=== PATIENT | male | born 1960 | race Caucasian/White ===

== ENCOUNTER 2024-06-07 09:26 | Outpatient (AMB) | payer OTHER, SELFPAY ==
--- NOTE | 2024-06-07 09:30 | MHC.PC.OV ---
Vital Signs 06/07/24 09:43 Height 5 ft 11 in Weight 195 lb BMI 27.2 BP 124/80 Blood Pressure Location Rt brachial Position Sitting Pulse 48 L Pulse Source Pulse Oximeter Pulse Oximetry (%) 98 Oxygen Delivery Method Room Air Intake Visit Reasons: SOCK LINER // Establish Care Intake Note: New patient visit. Umbilical hernia for 2 years. Fish Bailer Required: No Accompanied by: Spouse Allergies meperidine [From Demerol] Allergy (Unknown, Verified 06/07/24 09:35) stomach issue Tobacco use date assessed: 06/07/24 Fall risk assessment: No Falls in past year Last assessed Fall Risk: 06/07/24 Dental Screening Dental Screen Date: 06/07/24 Did you have a dental visit in the last 12 months?: Yes Did you have a dental problem in the last 6 months where you did not have access to dental care?: No Was dental information given to patient?: Patient has dentist HPI HPI Comments History of Present Illness Details The patient is a 64 year old male with a past medical history of hypertension, hyperlipidemia, hyperglycemia, OA, colon polyps, elevated LFTs presenting to [facility]. Transfer from [facility] CV: On irbesartan, amlodipine. Denies chest pain, exertional dyspnea, LE edema Endocrine: Hyperglycemia. History of adrenal hyperplasia on CT which was done for a mass/lump in the left abdomen that he has had for the past few months. It started when he was doing parallel bars in gymnastics. Says they noticed bruising at one point Urologic: Follows with [facility] urology. History of kidney stones. History of hematuria Allergies/asthma: On claritin, prn albuterol Colonoscopy 2020-Follow up July per patient ROS see HPI PHYSICAL EXAM: GENERAL: Alert and oriented x 3. NAD EYES: EOMI. Anicteric. HENT: Moist mucous membranes. No scleral icterus. No cervical lymphadenopathy. LUNGS: Clear to auscultation bilaterally. CARDIOVASCULAR: Regular rate and rhythm. No murmur. No JVD. ABDOMEN: Soft, non-tender. There is a mass/bulging over the left transverse abdominus muscles EXTREMITIES: No edema. Non-tender. SKIN: No rashes or lesions. Warm. NEUROLOGIC: No focal neurological deficits. CN II-XII grossly intact PSYCHIATRIC: Cooperative. 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 1. Little interest or pleasure in doing things: not at all 2. Feeling down, depressed, or hopeless: not at all 3. Trouble falling or staying asleep, or sleeping too much: not at all 4. Feeling tired or having little energy: not at all 5. Poor appetite or overeating: not at all 6. Feeling bad about yourself - or that you are a failure or have let yourself or your family down: not at all 7. Trouble concentrating on things, such as reading the newspaper or watching television: not at all 8. Moving or speaking so slowly that other people could have noticed. Or the opposite - being so fidgety or restless that you have been moving around a lot more than usual: not at all 9. Thoughts that you would be better off or of hurting yourself in some way: not at all Total score: 0 Depression Screening Interpretation: Negative Depression Screening Done: Yes 37120 - PHQ-9 Billing: Yes Source: Developed by Drs. Theodore Jordan, Cheryl Duval, Tristan Kaur and colleagues, with an educational elena from [employer]. Thrive Questionnaire Date Thrive assessed: 05/31/24 I am a: Patient What is your living situation today?: I have a steady place to live Within the past 12 months, did the food you bought not last and you didn't have the money to get more?: Never true Within the past 12 months, did you worry whether your food would run out before you got money to buy more?: Never true Do you have trouble paying for medicines?: No Do you have trouble getting transportation to medical appointments?: No Do you have trouble paying your heating and electricity bill?: No Do you have trouble taking care of your child, family member or friend?: No Do you have trouble with day-to-day activities such as bathing, preparing meals, shopping, managing finances, etc.?: No Are you currently unemployed and looking for a job?: No Are you interested in more education?: No Please select the resources that you would like help with: None Currently or been in a relationship where the following occur: No concerns reported THRIVE Score: 0 AUDIT C Alcohol Use Questionnaire (AUDIT-C) 1. How often do you have a drink containing alcohol?: Monthly or less 2. How many drinks containing alcohol do you have on a typical day when you are drinking?: 1 or 2 3. How often do you have six or more drinks on one occasion?: Never Total Score: 1 DANAY-7 AMB Questionnaire DANAY-7 Feeling nervous, anxious, or on edge: 0 = Not at all Not being able to stop or control worryin = Not at all Worrying too much about different things: 0 = Not at all Trouble relaxin = Not at all Being so restless that it is hard to sit still: 0 = Not at all Becoming easily annoyed or irritable: 0 = Not at all Feeling afraid as if something awful might happen: 0 = Not at all Total DANAY-7 score (0-4 normal; 5-9 mild; 10-14 moderate; 15-21 severe): 0 Source: Developed by Drs. Theodore Jordan, Cheryl Duval, Tristan Kaur and colleagues, with an educational elena from [employer]. Physical exam (Primary Care) Vital Signs: Last Vital Signs Pulse 48 L 06/07/24 09:43 BP 124/80 06/07/24 09:43 Pulse Ox 98 06/07/24 09:43 Oxygen Delivery Method Room Air 06/07/24 09:43 BMI result Body Mass Index 27.2 Tobacco/Smoking Status: Tobacco use Status Tobacco use date assessed 06/07/24 06/07/24 09:45 Patient Tobacco Use Status Former Tobacco user 06/07/24 09:45 e-Cigarette/Vaping Use Never Used 06/07/24 09:45 PHQ-9: PHQ-9 Score PHQ-9: Total score 0 06/07/24 09:32 Depression Screening Interpretation: Negative Thrive Assessment: Date of Thrive Assessment Date Thrive assessed 05/31/24 06/07/24 09:32 Currently or been in a relationship where the following occur: No concerns reported Coding Level of Care Code New Pt Level 4 (81618) Complex EM visit Add On G2211 Diagnoses Encounter to establish care Z76.89 Abdominal mass of other site R19.09 Abdominal location: other location Adrenal hyperplasia E27.8 Additional Codes PHQ-9 - 35769 - PHQ-9 Billing: Yes ([id number]) Assessment & Plan Assessment & Plan (1) Encounter to establish care: Code(s): Z76.89 - Persons encountering health services in other specified circumstances Category: Medical Plan: 64 year old to establish care. past medical, surgical, social and family history reviewed (2) Abdominal mass: Code(s): R19.00 - Intra-abdominal and pelvic swelling, mass and lump, unspecified site Category: Medical Qualifiers: Abdominal location: other location Qualified Code(s): R19.09 - Other intra-abdominal and pelvic swelling, mass and lump Plan: Left lateral mid/lower abdominal bulging/mass CT reviewed. No findings to explain. Ultrasound ordered. Refer general surgery. More consistent with lipoma on exam (3) Adrenal hyperplasia: Code(s): E27.8 - Other specified disorders of adrenal gland Category: Medical Plan: refer endocrinology for evaluation Orders: Orders Comprehensive Met. Panel Today M79.89 - Other specified soft tissue disorders, R73.9 - Hyperglycemia, unspecified US abdomen limited Today M79.89 - Other specified soft tissue disorders, R19.00 - Intra-abdominal and pelvic swelling, mass and lump, unspecified site Hemoglobin A1c Today M79.89 - Other specified soft tissue disorders, R73.9 - Hyperglycemia, unspecified Referrals General Surgery Referral R19.00 - Intra-abdominal and pelvic swelling, mass and lump, unspecified site Endocrinology Referral E27.8 - Other specified disorders of adrenal gland
[2024-06-07 09:43] VITALS: BP 124/80; PULSE 48; O2SAT 98; BMI 27.2
--- OUTSIDE RECORDS SUMMARY | 2024-06-07 09:56 | XMS_ITS | Clinical Summary ---
Author Organization [facility] Address [address] [place] [phone] Phone Care Team Providers Care Training And Development Project Leader Name Role Phone Danielle Correa MD Primary Care Provider Allergies Active Allergy Reactions Criticality Noted Date Comments Meperidine Hcl Nausea And Vomiting 06/05/2006 Medications Medication Sig Dispensed Refills Start Date End Date Status albuterol HFA (PROAIR HFA ; PROVENTIL HFA ; VENTOLIN HFA) 90 mcg/actuation inhaler Inhale 2 Puffs into the lungs 4 times daily as needed for Cough or Wheezing. 04/01/2018 Active amLODIPine (NORVASC) 10 mg tablet Take 1 tablet (10 mg total) by mouth 1 (one) time each day. 12/29/2023 Active ascorbic acid (VITAMIN C) 1,000 mg tablet Take 1,000 mg by mouth daily. Active EPINEPHrine (EpiPen 2-Jaleel) 0.3 mg/0.3 mL injection Inject 1 Tube as directed Once. For severe reaction to bee sting. 10/21/2022 Active loratadine (CLARITIN) 10 mg tablet Take 1 tablet (10 mg total) by mouth 1 (one) time each day. 06/12/2022 Active multivit-mins/iron /folic/lycop (CENTRUM ULTRA MEN'S ORAL) Take by mouth daily. Active reservoir inhalation (INSPIREASE) device Use as directed 04/01/2018 Active fluticasone propionate (FLONASE) 50 mcg/actuation nasal sprayIndications:A llergic rhinitis due to pollen SPRAY 2 SPRAYS INTO EACH NOSTRIL EVERY DAY 48 mL 1 05/05/2024 Active irbesartan (AVAPRO) 150 mg tabletIndications: Essential (primary) hypertension TAKE 1 TABLET BY MOUTH EVERY DAY 90 tablet 05/27/2024 Active tamsulosin (FLOMAX) 0.4 mg 24 hr capsuleIndications :Urgency of urination TAKE 1 CAPSULE BY MOUTH DAILY. TAKE 30 MINS AFTER SAME MEAL EVERY DAY. 90 capsule 05/31/2024 Active irbesartan (AVAPRO) 150 mg tablet Take 1 tablet (150 mg total) by mouth 1 (one) time each day. 10/23/2023 5 Discontinued tamsulosin (FLOMAX) 0.4 mg 24 hr capsule Take 1 Capsule by mouth daily. Take 30 mins after same meal every day. 02/02/2024 5 Discontinued Active Problems Problem Noted Date Diagnosed Date Abdominal wall pain 07/28/2023 Abnormal LFTs 06/13/2019 Primary osteoarthritis involving multiple joints 01/29/2015 Internal hemorrhoids 03/19/2009 Overview (02/19/2024): Incidental finding on colonoscopy 03/12 Hyperglycemia 12/07/2008 Mixed hyperlipidemia 12/07/2008 Overview (02/19/2024): Ascvd 10.5% Osteoarthritis of hip 02/04/2008 Overview (02/19/2024): IMO update Essential hypertension, benign 07/10/2006 Encounters Date Type Department Care Team Description 03/28/2024 Nurse Triage Adult Medicine [address] [phone] Danielle Correa MD 03/28/2024 Telephone Adult Medicine [address] [phone] Danielle Correa MD 03/21/2024 Lab Requisition [facility] - Main Lab [address] [facility] [place] [address] Uri Amanda MD Benign essential microscopic hematuria; Hematuria, unspecified from Last 3 Months Immunizations Name Administration Dates Next Due Influenza Quadravalent, MDCK , 0.5ml, preservative free (Flucelvax) 6mo and older 01/14/2021 Influenza trivalent, 0.5mL, preservative free (Fluarix; FluLaval; Fluzone) ages 6mo and older (Afluria) 3 years and older 02/02/2023,02/06/2020,01/27/2019,2017,01/19/2017,01/07/2015,01/27/2014,1 ,01/30/2012,02/28/2011, 010,01/25/2009,02/25/2008,02/26/2007 Influenza, Unspecified 01/25/2024,02/12/2022,04/2021 Pfizer SARS-CoV-2 COVID-19, mRNA, LNP-S, preservative free 01/24/2022,08/05/2021,03/18/2021,2020 Pneumococcal conjugate 20 va lent (Prevnar 20, PCV 20) 2mo and older 07/28/2023 Td Tetanus diptheria (Tdvax) 7yo and older 12/22/2018,05/04/1998 Tdap Tetanus diptheria acell ular pertussis (Boostrix; Adacel) 7yo and older 03/23/2009 Zoster recombinant (Shingrix ) 19yo and older 05/10/2019,02/02/2019 Surgical History Surgery Date Site/Laterality Comments APPENDECTOMY PROCEDURE: VT APPENDECTOMY FOOT SURGERY PROCEDURE: VT UNLISTED PROCEDURE FOOT/TOES; COMMENT: left COLONOSCOPY 03/13/2009 PROCEDURE: HISTORICAL COLONOSCOPY; COMMENT: negDr Joel COLONOSCOPY 09/20/2020 PROCEDURE: HISTORICAL COLONOSCOPY; COMMENT: tubular adenoma Medical History Medical History Date Comments Mixed hyperlipidemia DX:Mixed hy perlipidemia Other abnormal glucose DX:Other abnormal glucose Osteoarthrosis, unspecified whether generalized or localized, pelvic region and thigh DX:Osteoarthrosis, unspecifi ed whether generalized or localized, pelvic region and thigh Essential hypertension, benign D X:Essential hypertension, benign History of colon polyps 09/26/2020 DX:Histo ry of colon polyps Family History Medical History Relation Name Comments Lung cancer Father Other cancer Father esophagus, Other: valve replac Mother pacemake r Relation Name Status Comments Brother AIDs Daughter Alive 2 Father lung cancer, pn eumonia, esophageal cancer, aortic aneurism, Maternal Grandfather mi Maternal Grandmother (Age 74) le ukemia Mother Alive Paternal Grandfather (Age 69) lesley ng disease Paternal Grandmother (Age 96) cv a Social History Tobacco Use Types Packs/Day Years Used Date Smoking Tobacco: Former Cigarettes Q uit: 05/04/1988 Smokeless Tobacco: Never Alcohol Use Standard Drinks/Week Comments Yes 0 (1 standard drink = 0.6 oz pur e alcohol) Housing Instability Answer Date Recorde d Are you worried that in the next 2 months you may not have stable housing? No 03/30/2024 Food Access & Nutrition Answer Date Rec orded Do you have access to a vari ety of food including fruits and vegetables? Yes 03/30/2024 Access to Healthcare Answer Date Record ed Within the last 3 months, sonam king many times did you visit the emergency department for your medical care? 1 03/30/2024 Health Literacy Answer Date Recorded How often do you need to hav e someone help you when you read instructions, pamphlets, or other written material from your doctor or pharmacy? Never 03/30/2024 Caregiver: How often do you need to have someone help you when you read instructions, pamphlets, or other written material from your doctor or pharmacy? Not on file 03/30/2024 Financial Risk Answer Date Recorded How hard is it for you to pa y for the very basics like food, housing, medical care, and air conditioning / heating? Not very hard 03/30/2024 Transportation Answer Date Recorded Has the lack of transportati on kept you from meetings, work, or from getting things needed for daily living? No Has the lack of transportati on kept you from medical appointments or from getting medications? No 03/30/2024 Social Isolation Answer Date Recorded How often do you feel lonely or isolated from th ose around you? Never 03/30/2024 Food Risk Answer Date Recorded Within the past 12 months we worried whether our food would run out before we got money to buy more. Never true 03/30/2024 Within the past 12 months th e food we bought just didn't last and we didn't have money to get more. Never true 03/30/2024 Dependent Care Answer Date Recorded Do you need help finding or paying for care for your loved ones. For example, early childhood teacher assistant or elderly care for an older adult? No 03/30/2024 Education Answer Date Recorded Do you think completing more education or training, like finishing a GED, going to college, or learning a trade, would be helpful for you? N/A 03/30/2024 Employment and Income Answer Date Recor ded During the last four weeks, have you been actively looking for work? No 03/30/2024 Living Situation Answer Date Recorded What is your living situation? 1 05/30/2023 Sex and Gender Information Value Date Recorded Sex Assigned at Not on file Gender Identity Not on file Sexual Orientation Not on file Job Start Date Occupation Industry Not on file Not on file Not on file Obstetrics History Last Filed Vital Signs Vital Sign Reading Time Taken Comments Blood Pressure 124/70 10/23/2023 9:06 AM EDT Pulse 64 10/23/2023 9:06 AM EDT Temperature - - Respiratory Rate - - Oxygen Saturation - - Inhaled Oxygen Concentration - - Weight 87.5 kg (192 lb 12.8 oz) 10/23/2023 9:06 AM EDT Height 181.6 cm (5' 11.5 ) 10/23/2023 9:06 AM ED T Body Mass Index 26.52 10/23/2023 9:06 AM EDT Plan of Treatment Upcoming Encounters Date Type Department Care Team (Late st Contact Info) Description 06/08/2024 9:45 AM EST Office Visit [place] [facility] [address] [place] [address] Danielle Correa MD [address] [place] [address] Health Maintenance Due Date Last Done Comments Abdominal Aortic Aneurysm (AAA) Screen 04/12/2022 Medicare Annual Wellness Visit 04/12/2022 COVID-19 Vaccine ( season) 2024 02/02/2023, 01/24/2022, 08/05/2021, Additional history exists Hypertension/CHF/CAD Annual BMP Blood Test 07/28/2024 07/29/2023 Depression Screening 03/30/2025 03/30/2024, 10/23/19 Social Influencers of Health Screening 03/30/2025 03/30/2024 Falls Risk Assessment 04/06/2025 04/06/2024 Colorectal Cancer Screening: Colonoscopy 09/20/2025 09/20/2020 Cholesterol Screening (Lipid Panel) 10/22/2027 10/21/2022 DTaP,Tdap,and Td Vaccines (4 - Td or Tdap) 12/22/2028 12/22/2018, 03/23/2009, 05/04/1998 RSV Immunization Patients 60+ Years Old (1 - 1-dose 75+ series) 2033 Hepatitis C Screening Completed 04/23/2012 Zoster Vaccines Completed 05/10/2019, 02/02/2019 Pneumococcal Vaccine: 65+ Years Completed 07/28/2023 Influenza Vaccine Completed 01/25/2024, , 02/12/2022, Additional history exists HIB Vaccines Aged Out No longer eligi ble based on patient's age to complete this topic HPV Vaccines Aged Out No longer eligi ble based on patient's age to complete this topic Hepatitis A Vaccines Aged Out No long er eligible based on patient's age to complete this topic Hepatitis B Vaccines Aged Out No long er eligible based on patient's age to complete this topic IPV Vaccines Aged Out No longer eligi ble based on patient's age to complete this topic MMR Vaccines Aged Out No longer eligi ble based on patient's age to complete this topic Meningococcal ACWY Vaccine Aged Out N o longer eligible based on patient's age to complete this topic RSV Immunization Patients Under 20 months Aged Out No longer eligible based on patient's age to complete this topic Varicella Vaccines Aged Out No longer eligible based on patient's age to complete this topic Procedures Procedure Name Priority Date/Time Associated Diagnosis Comments AP OUTSIDE CONSULT Routine 03/16/2024 12 :00 AM EST Benign essential microscopic hematuria Hematuria, unspecified DEPRESSION SCREENING Routine 10/23/2023 ANNUAL BMP BLOOD TEST Routine 07/29/2023 LIPID PANEL Routine 10/21/2022 COLONOSCOPY Routine 09/20/2020 HEPATITIS C SCREENING Routine 04/23/2012 from Last 3 Months or Most Recently Relevant to Health Maintenance Results * Anatomic pathology outside consult (03/16/2024 12:00 AM EST) Final Diagnosis Urine, Voided (cystoscope): Negative for high grade urothelial carcinoma. Acute inflammation present. 03/30/2024 4:23 PM EST [facility] Gross Description A. Urine, Voided, : [id number] Recd 1 TP cyto 03/30/2024 4:23 PM EST [facility] Disclaimer Unless otherwise specified, all tissue is 10% NB formalin fixed and paraffin embedded. 03/30/2024 4:23 PM EST [facility] Tissue Urine specimen from urethra / Unknown 03/16/2024 03/21/2024 11:15 AM EST Uri Amanda MD LAB PATHOLOGY ORDER [facility] [address] [place] [address], * Depression Screening (10/23/2023) Depression Screening abstracted Historical Provider MD SAE WALTERS E * Annual BMP Blood Test (07/29/2023) Pathologist [facility] Annual BMP Blood Test abstracted Historical Provider MD SAE WALTERS E * (ABNORMAL) Lipid panel (10/21/2022) Pathologist [facility] LDL/HDL Ratio 4 0 - 4 Triglycerides 156(A) 0 - 150 mg/dL Cholesterol 180 0 - 200 mg/dL HDL 51 40 mg/dL LDL Cholesterol 98 0 - 100 mg/dL Blood Venous blood specimen / Unknown Historical Provider LAB BLOOD ORDERAB LES * Colonoscopy (09/20/2020) Colonoscopy no interpreta tion,abstr acted Anatomical Region Laterality Modality Other Historical Provider MD SAE WALTERS E * Hepatitis C Screening (04/23/2012) Hepatitis C Screening abstracted Historical Provider MD SAE WALTERS E from Last 3 Months or Most Recently Relevant to Health Maintenance Care Teams Training And Development Project Leader Relationship Specialty Start Date End Date Danielle Correa MD [address] [place] [address] PCP - General 10/23/23
--- OUTSIDE RECORDS SUMMARY | 2024-06-07 09:56 | XMS_ITS | Encounter Summary ---
Author Organization [facility] Address [address] [place] [address] Care Team Providers Care Desk Assistant Name Role Phone Danielle Correa MD Primary Care Provider [phone] Encounter Details Date Type Department Care Team (Late st Contact Info) Description 03/21/2024 Lab Requisition [facility] - Main Lab [address] [facility] [place] [address] Uri Amanda MD [address] [facility] [address] [place] [address] Benign essential microscopic hematuria; Hematuria, unspecified Social History Tobacco Use Types Packs/Day Years Used Date Smoking Tobacco: Former Cigarettes Q uit: 05/04/1988 Smokeless Tobacco: Never Alcohol Use Standard Drinks/Week Comments Yes 0 (1 standard drink = 0.6 oz pur e alcohol) Sex and Gender Information Value Date Recorded Sex Assigned at Not on file Gender Identity Not on file Sexual Orientation Not on file Job Start Date Occupation Industry Not on file Not on file Not on file documented as of this encounter Plan of Treatment Upcoming Encounters Date Type Department Care Team (Late st Contact Info) Description 06/08/2024 9:45 AM EST Office Visit Adult Medicine [facility] [address] [place] [address] Danielle Correa MD [address] [place] [address] documented as of this encounter Procedures Procedure Name Priority Date/Time Associated Diagnosis Comments AP OUTSIDE CONSULT Routine 03/16/2024 12 :00 AM EST Benign essential microscopic hematuria Hematuria, unspecified documented in this encounter Results * Anatomic pathology outside consult (03/16/2024 12:00 AM EST) Final Diagnosis Urine, Voided (cystoscope): Negative for high grade urothelial carcinoma. Acute inflammation present. 03/30/2024 4:23 PM EST [facility] Gross Description A. Urine, Voided, : [id number] Recd 1 TP cyto 03/30/2024 4:23 PM EST [facility] Disclaimer Unless otherwise specified, all tissue is 10% NB formalin fixed and paraffin embedded. 03/30/2024 4:23 PM EST [facility] Tissue Urine specimen from urethra / Unknown 03/16/2024 03/21/2024 11:15 AM EST Uri Amanda MD LAB PATHOLOGY ORDER [facility] [address] [place] [address], documented in this encounter Visit Diagnoses Diagnosis Benign essential microscopic hematuria Hematuria, unspecified documented in this encounter Care Teams Desk Assistant Relationship Specialty Start Date End Date Danielle Correa MD [address] [facility] [place] [address] PCP - General 10/23/23 documented as of this encounter
--- OUTSIDE RECORDS SUMMARY | 2024-06-07 09:56 | XMS_ITS | Encounter Summary ---
Author Organization [facility] Address [address] [place] [address] Care Team Providers Care Real Estate Agency Principal Name Role Phone Danielle Correa MD Primary Care Provider +1- [phone] Encounter Details Date Type Department Care Team (Late st Contact Info) Description 03/28/2024 Nurse Triage Adult Medicine [facility] [address] [place] [address] Danielle Correa MD [address] [place] [address] Social History Tobacco Use Types Packs/Day Years [...] Record ed Within the last 3 months, ho w many times did you visit the emergency [...] care for your loved ones. For example, child support agent or elderly care for an older adult? [...] 9:45 AM EST Office Visit Adult Medicine [facility] [address] [facility] [place] [address] Danielle Correa MD [address] [place] [address] documented as of this encounter Visit Diagnoses Not on filedocumented in this encounter Care Teams Real Estate Agency Principal Relationship Specialty Start Date End Date Danielle Correa MD [address] [place] [address] PCP - General 10/23/23 documented as of this encounter
== END 2024-06-07 10:28 | disposition home or self-care (01) ==
PROVIDERS: PCP Internal Medicine; Visit Provider Internal Medicine
DX: Z76.89 Persons encountering health services in other specified circumstances (principal); R19.09 Other intra-abdominal and pelvic swelling, mass and lump; E27.8 Other specified disorders of adrenal gland

== ENCOUNTER → 2024-06-07 09:26 | Outpatient (BNVA) | payer OTHER, SELFPAY | PROVIDERS: PCP Internal Medicine; Visit Provider Internal Medicine | DX: I10 Essential (primary) hypertension (principal); E78.5 Hyperlipidemia, unspecified; R19.09 Other intra-abdominal and pelvic swelling, mass and lump; E27.8 Other specified disorders of adrenal gland; M79.89 Other specified soft tissue disorders; R73.9 Hyperglycemia, unspecified; Z76.89 Persons encountering health services in other specified circumstances | CPT/HCPCS: 96127 ==

== ENCOUNTER 2024-06-07 10:32 | Outpatient (REF) | payer OTHER, SELFPAY ==
--- OUTSIDE RECORDS SUMMARY | 2024-06-07 11:24 | XMS_ITS | Encounter Summary ---
Author Organization [facility] Address [address] [place] [address] Care Team Providers Care Offensive Coordinator Name Role Phone Danielle Correa MD Primary Care Provider +1- [phone] Encounter Details Date Type Department Care Team (Late st Contact Info) Description 03/21/2024 Lab Requisition [facility] - Main Lab [address] [facility] [place] [address] Uri Amanda MD [address] [facility] [address] [place] [address] Benign essential microscopic hematuria; Hematuria, unspecified Social [...] 9:45 AM EST Office Visit Adult Medicine [facility] [address] [place] [address] Danielle Correa MD [address] [place] [address] documented as of this encounter Procedures Procedure Name Priority Date/Time Associated Diagnosis Comments AP OUTSIDE CONSULT Routine 03/16/2024 12 :00 AM EST Benign essential microscopic hematuria Hematuria, unspecified documented in this encounter Results * Anatomic pathology outside consult (03/16/2024 12:00 AM EST) Final Diagnosis Urine, Voided (cystoscope): Negative for high grade urothelial carcinoma. Acute inflammation present. 03/30/2024 4:23 PM EST [facility] Gross Description A. Urine, Voided, : [id number] Recd 1 TP cyto 03/30/2024 4:23 PM EST [facility] Disclaimer Unless otherwise specified, all tissue is 10% NB formalin fixed and paraffin embedded. 03/30/2024 4:23 PM EST [facility] Tissue Urine specimen from urethra / Unknown 03/16/2024 03/21/2024 11:15 AM EST Uri Amanda MD LAB PATHOLOGY ORDER GILBERTO [facility] [address] [place] [address], documented in this encounter Visit Diagnoses Diagnosis Benign essential microscopic hematuria Hematuria, unspecified documented in this encounter Care Teams Offensive Coordinator Relationship Specialty Start Date End Date Danielle Correa MD [address] [place] [address] PCP - General 10/23/23 documented as of this encounter
--- OUTSIDE RECORDS SUMMARY | 2024-06-07 11:25 | XMS_ITS | Clinical Summary ---
Author Organization [facility] Address [address] [place] [phone] Phone Care Team Providers Care Building Custodial Supervisor Name Role Phone Danielle Correa MD Primary [...] Team Description 03/28/2024 Nurse Triage Adult Medicine [address] [phone] Danielle Correa MD 03/28/2024 Telephone Adult Medicine [address] [phone] Danielle Correa MD 03/21/2024 Lab Requisition [facility] - Main Lab 299 [facility] [place] [address] Uri Amanda MD Benign essential [...] History Surgery Date Site/Laterality Comments APPENDECTOMY PROCEDURE: [place] APPENDECTOMY FOOT SURGERY PROCEDURE: [place] UNLISTED PROCEDURE FOOT/TOES; COMMENT: left COLONOSCOPY 03/13/2009 [...] for your loved ones. For example, child psychiatrist or elderly care for an older adult? [...] 9:45 AM EST Office Visit Adult Medicine [facility] [address] [place] [address] Danielle Correa MD [address] [place] [address] Health Maintenance Due Date Last Done Comments [...] Acute inflammation present. 03/30/2024 4:23 PM EST [facility] Gross Description A. Urine, Voided, : [id number] Recd 1 TP cyto 03/30/2024 4:23 PM EST [facility] Disclaimer Unless otherwise specified, all tissue is 10% NB formalin fixed and paraffin embedded. 03/30/2024 4:23 PM EST [facility] Tissue Urine specimen from urethra / Unknown 03/16/2024 03/21/2024 11:15 AM EST Uri Amanda MD LAB PATHOLOGY ORDER GILBERTO [facility] [address] [place] [address], * Depression Screening (10/23/2023) Depression Screening abstracted Historical Provider MD SAE WALTERS E * Annual BMP Blood Test (07/29/2023) Pathologist [facility] Annual BMP Blood Test abstracted Historical Provider MD SAE WALTERS E * (ABNORMAL) Lipid panel (10/21/2022) Pathologist [facility] LDL/HDL Ratio 4 0 - 4 Triglycerides [...] Recently Relevant to Health Maintenance Care Teams Building Custodial Supervisor Relationship Specialty Start Date End Date Danielle Correa MD [address] [place] [address] PCP - General 10/23/23
--- OUTSIDE RECORDS SUMMARY | 2024-06-07 11:25 | XMS_ITS | Encounter Summary ---
Author Organization [facility] Address [address] [place] [address] Care Team Providers Care Tooling Mechanic Name Role Phone Danielle Correa MD Primary Care Provider +1- [phone] Encounter Details Date Type Department Care Team (Late st Contact Info) Description 03/28/2024 Nurse Triage Adult Medicine [facility] [address] [place] [address] Danielle Correa MD [address] [place] [address] Social History Tobacco Use Types Packs/Day Years [...] for your loved ones. For example, child day care provider or elderly care for an older adult? [...] 9:45 AM EST Office Visit Adult Medicine [facility] [address] [facility] [place] [address] Danielle Correa MD [address] [place] [address] documented as of this encounter Visit Diagnoses Not on filedocumented in this encounter Care Teams Tooling Mechanic Relationship Specialty Start Date End Date Danielle Correa MD [address] [place] [address] PCP - General 10/23/23 documented as of this encounter
[2024-06-07 14:30] LABS: Estimated Average Glucose 117 mg/dL; Hemoglobin A1C 141.0736 umol/L; Hemoglobin A1c % 5.7 % (<6.0); Total Hemoglobin (HGBA1C) 3674.1821 umol/L
[2024-06-07 14:31] LABS: Alanine Aminotransferase 19 U/L (0-40); Albumin Level 4.4 g/dL (3.5-5.0); Alkaline Phosphatase 70 U/L (39-117); Anion Gap 14 (12-20); Aspartate Amino Transferase 23 U/L (5-37); Bilirubin Total 0.4 mg/dL (0.0-1.0); Blood Urea Nitrogen 16 mg/dL (9-16); Calcium 9.1 mg/dL (8.4-10.2); Carbon Dioxide 28 mmol/L (22-29); Chloride 105 mmol/L (96-108); Estimated Glomerular Filt Rate > 60; Glucose Random 91 mg/dL (60-115); Potassium 4.6 mmol/L (3.3-5.1); Sodium 142 mmol/L (135-145); Total Protein 7.8 g/dL (6.5-8.0)
== END 2024-06-07 10:33 | disposition home or self-care (01) ==
LOC: HO.WFDLDS 10:32
PROVIDERS: Visit Provider Internal Medicine
DX: M79.89 Other specified soft tissue disorders (principal); R73.9 Hyperglycemia, unspecified
CPT/HCPCS: 36415; 80053; 83036

== ENCOUNTER 2024-06-10 07:40 | Outpatient (REF) ==
--- OUTSIDE RECORDS SUMMARY | 2024-06-10 07:44 | XMS_ITS | Clinical Summary ---
Author Organization [facility] Address [address] [place] [phone] Phone Care Team Providers Care Golf Club Weighter Name Role Phone Danielle Correa MD Primary [...] Team Description 03/28/2024 Nurse Triage Adult Medicine [address] [phone] Danielle Correa MD 03/28/2024 Telephone Adult Medicine [address] [phone] Danielle Correa MD 03/21/2024 Lab Requisition [facility] - Main Lab 299 [facility] [place] [address] Uri Amanda MD Benign essential [...] History Surgery Date Site/Laterality Comments APPENDECTOMY PROCEDURE: [place] APPENDECTOMY FOOT SURGERY PROCEDURE: [place] UNLISTED PROCEDURE FOOT/TOES; COMMENT: left COLONOSCOPY 03/13/2009 [...] for your loved ones. For example, child development associate teacher or elderly care for an older adult? [...] 10/23/2023 9:06 AM EDT Plan of Treatment Health Maintenance Due Date Last Done Comments Abdominal Aortic Aneurysm (AAA) Screen 04/12/2022 Medicare Annual Wellness Visit 04/12/2022 COVID-19 Vaccine ( season) 2024 02/02/2023, 01/24/2022, 08/05/2021, Additional history exists Hypertension/CHF/CAD Annual BMP Blood Test 07/28/2024 07/29/2023 Depression Screening 03/30/2025 03/30/2024, 10/23/19 24 Social Influencers of Health Screening 03/30/2025 03/30/2024 [...] LAB Gross Description A. Urine, Voided, : [id number] Recd 1 TP cyto 03/30/2024 4:23 PM EST [facility] Disclaimer Unless otherwise specified, all tissue is 10% NB formalin fixed and paraffin embedded. 03/30/2024 4:23 PM EST [facility] Tissue Urine specimen from urethra / Unknown 03/16/2024 03/21/2024 11:15 AM EST Uri Amanda MD LAB PATHOLOGY ORDER GILBERTO [facility] [address] [place] [address], * Depression Screening (10/23/2023) [facility] Depression Screening abstracted Historical Provider MD SAE WALTERS [facility] Annual BMP Blood Test (07/29/2023) [facility] Annual BMP Blood Test abstracted Historical Provider MD SAE WALTERS E (ABNORMAL) Lipid panel (10/21/2022) [facility] LDL/HDL Ratio 4 0 - 4 Triglycerides 156(A) 0 - 150 mg/dL Cholesterol 180 0 - 200 mg/dL HDL 51 40 mg/dL LDL Cholesterol 98 0 - 100 mg/dL Blood Venous blood specimen / Unknown Historical Provider LAB BLOOD ORDERAB LES * Colonoscopy (09/20/2020) [facility] Colonoscopy no interpreta tion,abstr acted Anatomical Region Laterality Modality Other Historical Provider MD SAE WALTERS * Hepatitis C Screening (04/23/2012) [facility] Hepatitis C Screening abstracted Historical Provider MD SAE Tena from Last 3 Months or Most Recently Relevant to Health Maintenance Care Teams Golf Club Weighter Relationship Specialty Start Date End Date Danielle Correa MD [address] [place] [id number] PCP - General 10/23/23
--- OUTSIDE RECORDS SUMMARY | 2024-06-10 07:44 | XMS_ITS | Encounter Summary ---
Author Organization [facility] Address [address] [place] [address] Care Team Providers Care Doctor Of Optometry Name Role Phone Danielle Correa MD Primary Care Provider +1- [phone] Encounter Details Date Type Department Care Team (Late st Contact Info) Description 03/28/2024 Nurse Triage Adult Medicine [facility] [address] [place] [address] Danielle Correa MD [address] [place] [address] Social History Tobacco Use Types Packs/Day Years [...] care for your loved ones. For example, infant childcare provider or elderly care for an older [...] as of this encounter Plan of Treatment Not on file documented as of this encounter Visit Diagnoses Not on filedocumented in this encounter Care Teams Doctor Of Optometry Relationship Specialty Start Date End Date Danielle Correa MD [address] [place] [address] PCP - General 10/23/23 documented as of this encounter
== END 2024-06-10 07:41 | disposition home or self-care (01) ==
LOC: HO.US 07:40
DX: R19.00 Intra-abdominal and pelvic swelling, mass and lump, unspecified site (principal); M79.89 Other specified soft tissue disorders

== ENCOUNTER → 2024-06-10 07:44 | Outpatient (BNV) | payer MEDICARE, OTHER, SELFPAY | PROVIDERS: PCP Internal Medicine; Visit Provider Radiology Diagnostic Radiology | DX: R19.00 Intra-abdominal and pelvic swelling, mass and lump, unspecified site (principal) | CPT/HCPCS: 76705 ==

== ENCOUNTER 2024-06-14 09:51 | Outpatient (AMB) | payer OTHER, SELFPAY ==
--- NOTE | 2024-06-14 09:53 | MHC.OFFVIS ---
Vital Signs 06/14/24 10:01 Height 5 ft 11 in Weight 192 lb BMI 26.8 BP 140/83 H Blood Pressure Location Rt brachial Position Sitting Pulse 62 Intake Visit Reasons: Lipoma~ Lt lat mid abd Intake Note: Patient referred by pcp Dr. Paez for lipoma on Lt lat mid abd. Present for 2yrs. Patient c/o: bothersome. Denies pain, itch, oozing. Experience Planning Strategist Required: No Accompanied by: spouse Jocelyn Allergies meperidine [From Demerol] Allergy (Unknown, Verified 06/14/24 09:58) stomach issue HPI Comments Details: Patient presents with his significant other/ for a complaint of a 2 year history of a left mid abdominal wall swelling/bulge. He thinks he had been doing strenuous activities and tore something in abdominal wall. He otherwise is tolerating a diet. Having regular bowel habits. Patient was noted to have an ultrasound of the area which demonstrated no obvious hernia. Chart was reviewed and patient evaluated [facility] Medical History (Updated 06/14/24 @ 09:59 by PRAKASH Tilley) Appendicitis H/O nephrolithotomy with removal of calculi Surgical History (Updated 06/14/24 @ 10:56 by Valdez Stoner MD) Hx of foot surgery H/O oral surgery Family History Maternal Uncle Alcoholic Mother Substance abuse Social History Housing: House Patient Tobacco Use Status: Former Tobacco user Cigarette Packs Per Day: 1 Years Smoked: 10 e-Cigarette/Vaping Use: Never Used Second Hand Smoke Exposure: No service: No Current occupational status: retired Cognitive needs: No Hearing needs: Yes (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 He has a left mid abdominal wall small defect along the lateral semilunaris line consistent with a left spigelian hernia. This is reducible and controllable when patient is standing up/supine and coughing. Assessment & Plan Assessment & Plan (1) Spigelian hernia: Code(s): K43.9 - Ventral hernia without obstruction or gangrene Category: Surgical Plan Findings were reviewed with the patient was . Therapeutic options are conservative therapy or surgical repair. Risks, benefits, and alternatives of left spigelian hernia repair with mesh reviewed with the patient and included but not limited to bleeding, infection, recurrence, numbness, pain, scarring and the patient understands. All questions answered. Should he wished to pursue this, he said he will contact me. All questions answered. Coding Level of Care Code New Pt Level 5 (82120) Diagnoses Spigelian hernia K43.9
[2024-06-14 10:01] VITALS: BP 140/83; PULSE 62; BMI 26.8
--- OUTSIDE RECORDS SUMMARY | 2024-06-14 10:58 | XMS_ITS | Encounter Summary ---
Author Organization [facility] Address [address] [place] [address] Care Team Providers Care Sonogram Technician Name Role Phone Danielle Correa MD Primary Care Provider +1- [phone] Encounter Details Date Type Department Care Team (Late st Contact Info) Description 03/28/2024 Nurse T[address] Adult Medicine [facility] [address] [place] [address] Danielle Correa MD [address] [place] [address] Social History Tobacco Use Types Packs/Day Years [...] for your loved ones. For example, child care group leader or elderly care for an older adult? [...] Recorded Sex Assigned at Not on file Legal Sex Male 1:39 AM EST Gender Identity Not on file Sexual Orientation Not on file documented as of this encounter Plan of Treatment Not on file documented as of this encounter Visit Diagnoses Not on filedocumented in this encounter Care Teams Sonogram Technician Relationship Specialty Start Date End Date Danielle Correa MD [address] [place] [address] PCP - General 10/23/23 documented as of this encounter
--- OUTSIDE RECORDS SUMMARY | 2024-06-14 10:58 | XMS_ITS | Encounter Summary ---
Author Organization [facility] Address [address] [place] [address] Care Team Providers Care Information Services Vice President Name Role Phone Danielle Correa MD Primary Care Provider +1- [phone] Encounter Details Date Type Department Care Team (Late st Contact Info) Description 03/21/[address] [facility] - Main Lab [address] [facility] [place] [address] Uri Amanda MD [address] [facility] [address] [place] [address] Benign essential microscopic hematuria; Hematuria, unspecified Social [...] on file documented as of this encounter Procedures Procedure Name Priority Date/Time Associated Diagnosis Comments AP OUTSIDE CONSULT Routine 03/16/2024 12 :00 AM EST Benign essential microscopic hematuria Hematuria, unspecified documented in this encounter Results * Anatomic pathology outside consult (03/16/2024 12:00 AM EST) Final Diagnosis Urine, Voided (cystoscope): Negative for high grade urothelial carcinoma. Acute inflammation present. 03/30/2024 4:23 PM EST [facility] Gross Description A. Urine, Voided, : [id number] Recd 1 TP cyto 03/30/2024 4:23 PM EST [facility] Disclaimer Unless otherwise specified, all tissue is 10% NB formalin fixed and paraffin embedded. 03/30/2024 4:23 PM [facility] Tissue Urine specimen from urethra / Unknown 03/16/2024 03/21/2024 11:15 AM EST us Uri Amanda MD LAB PATHOLOGY ORDERABLES Fi nal Result [facility] [address] [place] [address], documented in this encounter Visit Diagnoses Diagnosis Benign essential microscopic hematuria Hematuria, unspecified documented in this encounter Care Teams Information Services Vice President Relationship Specialty Start Date End Date Danielle Correa MD [address] [place] [address] PCP - General 10/23/23 documented as of this encounter
--- OUTSIDE RECORDS SUMMARY | 2024-06-14 10:59 | XMS_ITS | Clinical Summary ---
Author Organization LL [address] [place] [address] [place] [phone] Phone Care Team Providers Care Svp Marketing Name Role Phone Dnaielle Correa MD Primary Care Provider Allergies Active Allergy Reactions Criticality Noted Date Comments Meperidine Hcl Nausea And Vomiting 06/05/2006 Medications albuterol HFA (PROAIR HFA ; PROVENTIL HFA ; VENTOLIN HFA) 90 mcg/actuation inhaler Inhale 2 Puffs into the lungs 4 times daily as needed for Cough or Wheezing. 04/01/20 18 Active amLODIPine (NORVASC) 10 mg tablet Take 1 tablet (10 mg total) by mouth 1 (one) time each day. 12/29/19 24 Active ascorbic acid (VITAMIN C) 1,000 mg tablet Take 1,000 mg by mouth daily. Active EPINEPHrine (EpiPen 2-Jaleel) 0.3 mg/0.3 mL injection Inject 1 Tube as directed Once. For severe reaction to bee sting. 10/22/19 23 Active loratadine (CLARITIN) 10 mg tablet Take 1 tablet (10 mg total) by mouth 1 (one) time each day. 06/12/19 23 Active multivit-mins/ir on/folic/lycop (CENTRUM ULTRA MEN'S ORAL) Take by mouth daily. Active reservoir inhalation (INSPIREASE) device Use as directed 04/01/20 18 Active fluticasone propionate (FLONASE) 50 mcg/actuation nasal sprayIndications :Allergic rhinitis due to pollen SPRAY 2 SPRAYS INTO EACH NOSTRIL EVERY DAY 48 mL 1 05/05/19 25 Active irbesartan (AVAPRO) 150 mg tabletIndication s:Essential (primary) hypertension TAKE 1 TABLET BY MOUTH EVERY DAY 90 tablet 05/27/19 25 Active tamsulosin (FLOMAX) 0.4 mg 24 hr capsuleIndicatio ns:Urgency of urination TAKE 1 CAPSULE BY MOUTH DAILY. TAKE 30 MINS AFTER SAME MEAL EVERY DAY. 90 capsule 05/31/19 25 Active irbesartan (AVAPRO) 150 mg tablet Take 1 tablet (150 mg total) by mouth 1 (one) time each day. 10/23/19 24 025 Discontinued tamsulosin (FLOMAX) 0.4 mg 24 hr capsule Take 1 Capsule by mouth daily. Take 30 mins after same meal every day. 02/02/20 025 Discontinued Active Problems Problem Noted Date Diagnosed [...] Team Description 03/28/2024 Nurse Triage Adult Medicine [address] [phone] Danielle Correa MD 03/28/2024 Telephone Adult Medicine [address] [phone] Danielle Correa MD 03/21/2024 Lab Requisition [facility] - Main Lab 299 [facility] [place] [address] Uri Amanda MD Benign essential [...] History Surgery Date Site/Laterality Comments APPENDECTOMY PROCEDURE: [place] APPENDECTOMY FOOT SURGERY PROCEDURE: [place] UNLISTED PROCEDURE FOOT/TOES; COMMENT: left COLONOSCOPY 03/13/2009 [...] your loved ones. For example, early childhood or elderly care for an older adult? [...] on file Sexual Orientation Not on file Obstetrics History Last Filed [...] Zoster Vaccines Completed 05/10/2019, 02/02/2019 Pneumococcal Vaccine: 50+ Years Completed 07/28/2023 Influenza Vaccine Completed 01/25/2024, [...] patient's age to complete this topic Meningococcal B Vacine Aged Out No lo nger eligible based on patient's age to complete [...] inflammation present. 03/30/2024 4:23 PM EST [facility] Gross Description A. Urine, Voided, : [id number] Recd 1 TP cyto 03/30/2024 4:23 PM EST [facility] Disclaimer Unless otherwise specified, all tissue is 10% NB formalin fixed and paraffin embedded. 03/30/2024 4:23 PM EST [facility] Tissue Urine specimen from urethra / Unknown 03/16/2024 03/21/2024 11:15 AM EST Uri Amanda MD LAB PATHOLOGY ORDERABLES Fi nal Result [facility] [address] [place] [address], * Depression Screening (10/23/2023) [facility] Depression Screening abstracted [facility] Provider HEALTH MAINTENANCE Final Result * Annual BMP Blood Test (07/29/2023) [facility] Annual BMP Blood Test abstracted [facility] Provider HEALTH MAINTENANCE Final Result * (ABNORMAL) Lipid panel (10/21/2022) [facility] LDL/HDL Ratio 4 0 - 4 Triglycerides 156(A) 0 - 150 mg/dL Cholesterol 180 0 - 200 mg/dL HDL 51 >=40 mg/dL LDL Cholesterol 98 0 - 100 mg/dL Blood Venous blood specimen / Unknown [facility] Provider LAB BLOOD ORDERABLES Beth l Result * Colonoscopy (09/20/2020) [facility] Colonoscopy no interpreta tion,abstr acted Anatomical Region Laterality Modality Other us Historical Provider HEALTH MAINTENANCE Final Result * Hepatitis C Screening (04/23/2012) Hepatitis C Screening abstracted us Historical Provider HEALTH MAINTENANCE Final Result from Last 3 Months or Most Recently Relevant to [place] [id number] MEDICARE [employer] Care Teams Svp Marketing Relationship Specialty Start Date End Date Danielle Correa MD [address] [place] [id number] PCP - General 10/23/23
== END 2024-06-14 10:11 | disposition home or self-care (01) ==
PROVIDERS: PCP Internal Medicine; Referring Provider Internal Medicine; Visit Provider Surgery
DX: K43.9 Ventral hernia without obstruction or gangrene (principal)
CPT/HCPCS: 99204

== ENCOUNTER → 2024-06-14 09:51 | Outpatient (BNVA) | payer OTHER, SELFPAY | PROVIDERS: PCP Internal Medicine; Referring Provider Internal Medicine; Visit Provider Surgery | DX: E27.8 Other specified disorders of adrenal gland (principal); K43.9 Ventral hernia without obstruction or gangrene | CPT/HCPCS: 99202 ==

== ENCOUNTER 2024-06-15 07:55 | Outpatient (REF) | payer MEDICARE, OTHER, SELFPAY ==
--- OUTSIDE RECORDS SUMMARY | 2024-06-15 07:57 | XMS_ITS | Encounter Summary ---
Author Organization [facility] [address] Address [address] [place] [address] Care Team Providers Care Pipeline Operator Name Role Phone Danielle Correa MD Primary Care Provider +1- [phone] Encounter Details Date Type Department Care Team (Late st Contact Info) Description 03/28/2024 Nurse Triage Adult Medicine [facility] [place] [place] [address] [place] [address] Danielle Correa MD [address] [place] [address] Social History Tobacco Use Types Packs/Day Years [...] your loved ones. For example, child care teacher or elderly care for an older [...] on filedocumented in this encounter Care Teams Pipeline Operator Relationship Specialty Start Date End Date Danielle Correa MD [address] [place] [address] PCP - General 10/23/23 documented as of this encounter
--- OUTSIDE RECORDS SUMMARY | 2024-06-15 07:57 | XMS_ITS | Clinical Summary ---
Author Organization LL [address] [place] [address] [place] [phone] Phone Care Team Providers Care Lead Nuclear Medicine Technologist Name Role Phone Danielle Correa MD Primary [...] Team Description 03/28/2024 Nurse Triage Adult Medicine [address] [phone] Danielle Correa MD 03/28/2024 Telephone Adult Medicine [address] [phone] Danielle Correa MD 03/21/2024 Lab Requisition [facility] - Main Lab [address] [facility] [place] [address] Uri Amanda MD Benign essential [...] History Surgery Date Site/Laterality Comments APPENDECTOMY PROCEDURE: [place] APPENDECTOMY FOOT SURGERY PROCEDURE: [place] UNLISTED PROCEDURE FOOT/TOES; COMMENT: left COLONOSCOPY 03/13/2009 [...] care for your loved ones. For example, school childcare attendant or elderly care for an older adult? [...] Acute inflammation present. 03/30/2024 4:23 PM EST [facility] Gross Description A. Urine, Voided, : [id number] Recd 1 TP cyto 03/30/2024 4:23 PM EST [facility] Disclaimer Unless otherwise specified, all tissue is 10% NB formalin fixed and paraffin embedded. 03/30/2024 4:23 PM EST [facility] Tissue Urine specimen from urethra / Unknown 03/16/2024 03/21/2024 11:15 AM EST Uri Amanda MD LAB PATHOLOGY ORDERABLES Fi nal Result [facility] [address] [place] [address], * Depression Screening (10/23/2023) [facility] Depression Screening abstracted [facility] Provider HEALTH MAINTENANCE Final Result * Annual BMP Blood Test (07/29/2023) [facility] Annual BMP Blood Test abstracted [facility] Provider HEALTH MAINTENANCE Final Result * (ABNORMAL) Lipid panel (10/21/2022) [facility] LDL/HDL Ratio 4 0 - 4 Triglycerides 156(A) 0 - 150 mg/dL Cholesterol 180 0 - 200 mg/dL HDL 51 >=40 mg/dL LDL Cholesterol 98 0 - 100 mg/dL Blood Venous blood specimen / Unknown [facility] Provider LAB BLOOD ORDERABLES Beth l Result * Colonoscopy (09/20/2020) [facility] Colonoscopy no interpreta tion,abstr acted Anatomical Region Laterality Modality Other us Historical Provider HEALTH MAINTENANCE Final Result * Hepatitis C Screening (04/23/2012) Hepatitis C Screening abstracted us Historical Provider HEALTH MAINTENANCE Final Result from Last 3 Months or Most Recently Relevant to [place] [id number] MEDICARE [employer] MEDICA[employer] Care Teams Lead Nuclear Medicine Technologist Relationship Specialty Start Date End Date Danielle Correa MD [address] [place] [id number] PCP - General 10/23/23
--- OUTSIDE RECORDS SUMMARY | 2024-06-15 07:57 | XMS_ITS | Encounter Summary ---
Author Organization [facility] Address [address] [place] [address] Care Team Providers Care Road Inspector Name Role Phone Danielle Correa MD Primary Care Provider [phone] Encounter Details Date Type Department Care Team (Late st Contact Info) Description 03/21/2024 Lab Requisition [facility] - Main Lab [address] [facility] [place] [address] Uri Amanda MD [address] [facility] [address] [place] [address] Benign essential microscopic hematuria; Hematuria, unspecified Social [...] Acute inflammation present. 03/30/2024 4:23 PM EST [facility] Gross Description A. Urine, Voided, : [id number] Recd 1 TP cyto 03/30/2024 4:23 PM EST [facility] Disclaimer Unless otherwise specified, all tissue is 10% NB formalin fixed and paraffin embedded. 03/30/2024 4:23 PM [facility] Tissue Urine specimen from urethra / Unknown 03/16/2024 03/21/2024 11:15 AM EST us Uri Amanda MD LAB PATHOLOGY ORDERABLES Fi nal Result [facility] [address] [place] [address], documented in this encounter Visit Diagnoses Diagnosis Benign essential microscopic hematuria Hematuria, unspecified documented in this encounter Care Teams Road Inspector Relationship Specialty Start Date End Date Danielle Correa MD [address] [place] [address] PCP - General 10/23/23 documented as of this encounter
[2024-06-15 09:17] LABS: Anion Gap 11 (12-20); Blood Urea Nitrogen 16 mg/dL (9-16); Calcium 8.8 mg/dL (8.4-10.2); Carbon Dioxide 23 mmol/L (22-29); Chloride 110 mmol/L (96-108); Estimated Glomerular Filt Rate > 60; Glucose Fasting 103 mg/dL (60-99); Potassium 4.1 mmol/L (3.3-5.1); Sodium 140 mmol/L (135-145)
[2024-06-15 09:37] LABS: Cortisol Random 7.8 ug/dL
[2024-06-16 10:23] LABS: DHEA Sulfate 42 mcg/dL (20-217)
[2024-06-21 12:49] LABS: Renin 0.15 ng/mL/h (0.25-5.82)
[2024-06-24 06:23] LABS: Metanephrine, Free 44 pg/mL (<=57); Normetanephrines, Free 89 pg/mL (<=148); Total Metanephrine, Free 133 pg/mL (<=205)
[2024-07-01 11:44] LABS: Dexamethasone <20 ng/dL
== END 2024-06-15 07:56 | disposition home or self-care (01) ==
LOC: HO.WFDLDS 07:55
PROVIDERS: PCP Internal Medicine; Visit Provider Internal Medicine Endocrinology, Diabetes & Metabolism
DX: E27.8 Other specified disorders of adrenal gland (principal)
CPT/HCPCS: 36415; 80048; 80299; 82088; 82533; 82627; 83498; 83835; 84244

== ENCOUNTER 2024-06-17 07:58 | Outpatient (REF) | payer MEDICARE, OTHER, SELFPAY ==
--- OUTSIDE RECORDS SUMMARY | 2024-06-17 08:04 | XMS_ITS | Encounter Summary ---
Author Organization [facility] Address [address] [place] [address] Care Team Providers Care Gas Roller Operator Name Role Phone Tierra Gonzales MD Primary Care Provider UnavailSam Magallanes MD Primary Care Provider Unavailable Cathy Barros DO Primary Care Provider Unavaila Danielle Riley MD Primary Care Provider [phone] Encounter Details Date Type Department Care Team Description 10/23/2014 Cartographic Engineer Report Medical Records [address] [place] [address] Galina Salazar MD Social History Tobacco Use Types Packs/Day Years Used Date Smoking Tobacco: Former Cigarettes 1 10 Q uit: 05/04/1988 Cigars Smokeless Tobacco: Never Comments:occasionally cigars Alcohol Use Standard Drinks/Week Comments Yes 0 (1 standard drink = 0.6 oz pur e alcohol) rare Sex Assigned at Date Recorded Not on file Job Start Date Occupation Industry Not on file Not on file Not on file documented as of this encounter Plan of Treatment Not on file documented as of this encounter Visit Diagnoses Not on filedocumented in this encounter Care Teams Gas Roller Operator Relationship Specialty Start Date End Date Tierra Gonzales MD PCP - General 04/10/06 11/25/20 Sam Tapia MD PCP - General Internal Medicine 11/26/20 Cathy Barros DO PCP - General Internal Medicine 04/25/21 10/22/23 Danielle Correa MD [address] [place] [address] PCP - General Internal Medicine 10/23/23 documented as of this encounter
--- OUTSIDE RECORDS SUMMARY | 2024-06-17 08:04 | XMS_ITS | Encounter Summary ---
Author Organization [facility] Address [address] [place] [address] Care Team Providers Care Decision Analyst Name Role Phone Tierra Gonzales MD Primary Care Provider UnavailSam Magallanes MD Primary Care Provider Unavailable Cathy Barros DO Primary Care Provider Unavaila Danielle Riley MD Primary Care Provider [phone] Encounter Details Date Type Department Care Team Description 09/21/2018 Napkin Band Wrapper Report Medical Records [address] [place] [address] Zulma Guo, PAJorgeC Social History Tobacco Use Types Packs/Day Years [...] on filedocumented in this encounter Care Teams Decision Analyst Relationship Specialty Start Date End Date Tierra Gonzales MD PCP - General 04/10/06 11/25/20 Sam Tapia MD PCP - General Internal Medicine 11/26/20 Cathy Barros DO PCP - General Internal Medicine 04/25/21 10/22/23 Danielle Correa MD [address] [place] [address] PCP - General Internal Medicine 10/23/23 documented as of this encounter
--- OUTSIDE RECORDS SUMMARY | 2024-06-17 08:04 | XMS_ITS | Encounter Summary ---
Author Organization [facility] Address [address] [place] [address] Care Team Providers Care C Application Developer Name Role Phone Cathy Barros DO Primary Care Provider Danielle Fox MD Primary Care Provider [phone] Reason for Visit * Reason Comments E-prescribe Rx Request Encounter Details Date Type Department Care Team Description 03/10/2022 Refill Adult Medicine - [address] [address] Cathy Barros DO E-prescribe Rx Request Social History Tobacco Use Types Packs/Day Years [...] on file documented as of this encounter Miscellaneous Notes * Telephone Encounter - Noreen Yepez - 03/18/2022 10:58 AM EST REFILL LAST OFFICE VIST: 01/03/22 LAST PCP VISIT: NEXT OFFICE VISIT: 04/22/22 documented in this encounter Plan of Treatment Not on file documented as of this encounter Visit Diagnoses Diagnosis Essential hypertension, benign documented in this encounter Care Teams C Application Developer Relationship Specialty Start Date End Date Ahmed, Khadiga, DO PCP - General Internal Medicine 04/25/21 10/22/23 Danielle Correa MD [address] [place] [address] PCP - General Internal Medicine 10/23/23 documented as of this encounter
--- OUTSIDE RECORDS SUMMARY | 2024-06-17 08:04 | XMS_ITS | Clinical Summary ---
Author Organization [facility] Address [address] [place] [address] Care Team Providers Care Department Sales Manager Name Role Phone Danielle Correa MD Primary Care Provider [phone] Allergies Active Allergy Reactions Severity Noted Date Comments Meperidine Hcl Nausea and Vomiting 06/05/2006 Medications Medication Sig Dispensed Refills Start Date End Date Status Ascorbic Acid (VITAMIN C) 1000 MG tablet Take 1,000 mg by mouth daily. 0 Active Multiple Vitamins-Minerals (CENTRUM ULTRA MENS OR) Take by mouth daily. 0 Active ALBUTEROL SULFATE (PROAIR HFA) 108 (90 BASE) MCG/ACT Aero Soln Inhale 2 Puffs into the lungs 4 times daily as needed for Cough or Wheezing. 1 Inhaler 0 04/01/2018 Active SPACER DEVICE-ADULT Use as directed 1 Device 0 04/01/2018 Active loratadine (CLARITIN) 10 MG tabletIndications:Se asonal allergic rhinitis due to pollen Take 1 Tablet by mouth daily. 90 Tablet 3 06/12/2022 Active EPINEPHrine (EpiPen 2-Jaleel) 0.3 MG/0.3ML Solution Auto-injectorIndicat ions:Bee sting allergy Inject 1 Tube as directed Once. For severe reaction to bee sting. 1 Each 1 10/21/2022 Active irbesartan (AVAPRO) 150 MG tabletIndications:Es sential hypertension, benign Take 1 Tablet by mouth daily. 90 Tablet 1 10/23/2023 Active amlodipine (NORVASC) 10 MG tabletIndications:Es sential hypertension, benign Take 1 Tablet by mouth daily. 90 Tablet 1 12/29/2023 Active fluticasone 50 MCG/ACT nasal sprayIndications:Sea darell allergic rhinitis due to pollen SPRAY 2 SPRAYS INTO EACH NOSTRIL EVERY DAY 48 mL 1 12/29/2023 Active tamsulosin (FLOMAX) 0.4 MG 24 hr capsuleIndications:U rinary urgency Take 1 Capsule by mouth daily. Take 30 mins after same meal every day. 90 Capsule 0 02/02/2024 Active Active Problems Problem Noted Date Abdominal wall pain 07/28/2023 History of colon polyps 09/26/2020 Abnormal LFTs 06/13/2019 Bee sting allergy 02/02/2019 Primary osteoarthritis involving multipl e joints 01/29/2015 Internal hemorrhoids 03/19/2009 Overview: Incidental finding on colonoscopy 03/12 Mixed hyperlipidemia 12/07/2008 Overview: Ascvd 10.5% Hyperglycemia 12/07/2008 DJD (degenerative joint disease) of hip 02/04/2008 Overview: IMO update Essential hypertension, benign 7 Immunizations Name Administration Dates Next Due COVID-19 (Moderna) PT Reported 01/27/2024 COVID-19 (Pfizer) 02/02/2023, 1,08/07/2020, 021 COVID-19 (Pfizer) Pt Reported 01/24/2022 ,08/05/2021,08/07/2020, 021 Influenza (> 6 Months) 02/02/2023,2019,01/27/2019, 018,01/19/2017,01/07/2015,01/27/2014,03/2013,01/30/2012,02/28/2011,03/01/2010 ,01/25/2009,02/25/2008,02/26/2007 Influenza Flu (PT Reported) 01/25/2024, 2,02/12/2021 Influenza Vaccine-preservati ve Free-quadrivalent 4 Years 01/14/2021 Influenza vaccine high dose age 65 and over 01/27/2024 PREVNAR 20 07/28/2023 Shingrix (Patient reported) 02/02/2019 Shingrix (Recombinant zoster vaccine) 05/10/2019 TD (STATE SUPPLIED FOR ADULT S AND CHILDREN) 12/22/2018,05/04/1998 Tdap 03/23/2009 Family History Medical History Relation Name Comments CA Lung Father Cancer, Other Father esophagus, valve replac Mother pacemaker Relation Name Status Comments Brother AIDs Daughter [...] Q uit: 05/04/1988 Cigars Smokeless Tobacco: Never Tobacco Cessation:Counseling Given: Not Answered Comments:occasionally cigars Alcohol Use Standard Drinks/Week Comments Yes 0 (1 standard drink = 0.6 oz pur e alcohol) rare Sex Assigned at Date Recorded Not on file Job Start Date Occupation Industry Not on file Not on file Not on file Last Filed Vital Signs Vital Sign Reading Time Taken Comments Blood Pressure 124/70 10/23/2023 9:06 AM EDT Pulse 64 10/23/2023 9:06 AM EDT Temperature 36.7 ??C (98 ??F) 10/23/2023 9:06 AM EDT Respiratory Rate 16 11/22/2021 11:1 6 AM EDT Oxygen Saturation 96% 05/29/2018 2:23 PM EST Inhaled Oxygen Concentration - - Weight 87.5 kg (192 lb 12.8 oz) 10/23/2023 9:06 AM EDT Height 181.6 cm (5' 11.5 ) 10/23/2023 9:06 AM ED T Body Mass Index 26.52 10/23/2023 9:06 AM EDT Plan of Treatment Health Maintenance Due Date Last Done Comments ABDOMINAL AORTIC ANEURYSM (A AA) SCREENING 2023 FALL RISK ASSESSMENT 2023 Covid-19 Vaccine ( season) 2024 01/27/2024, 02/02/2023, 01/24/2022, Additional history exists BMI CHECK/ADVISE 05/04/2024 10/23/2023, (Completed), 04/23/2023, Additional history exists DEPRESSION SCREEN 10/22/2024 10/23/2023 (Completed) COLON CANCER SCREENING 09/20/2025 , 03/13/2009 (Completed) CHOLESTEROL SCREENING 10/22/2027 10/21/2022 , 11/26/2020, 06/13/2019, Additional history exists DTAP/TDAP/TD (3 - Td or Tdap) 12/22/2028, 03/23/2009, 05/04/1998 HEPATITIS C SCREENING Completed 04/23/2012 SHINGLES VACCINE Completed 05/10/2019, 02/02/2019 PNEUMOCOCCAL VACCINE Completed 07/28/2023 INFLUENZA Completed 01/27/2024, 01/03, 02/02/2023, Additional history exists Care Teams Department Sales Manager Relationship Specialty Start Date End Date Danielle Correa MD [address] [place] [address] PCP - General Internal Medicine 10/23/23
--- OUTSIDE RECORDS SUMMARY | 2024-06-17 08:04 | XMS_ITS | Encounter Summary ---
Author Organization [facility] Address [address] [place] [address] Care Team Providers Care Assembler Rubber Footwear Name Role Phone Sam Tapia MD Primary Care Provider Unavailable Cathy Barros DO Primary Care Provider Unavaila ble Danielle Correa MD Primary Care Provider Encounter Details Date Type Department Care Team Description 02/04/2021 Refill Adult Medicine - [address] [address] Leatha Castillo NP Social History Tobacco Use Types Packs/Day Years Used Date Smoking Tobacco: Former Cigarettes 1 10 Q uit: 05/04/1988 Cigars Smokeless Tobacco: Never Comments:occasionally cigars Alcohol Use Standard Drinks/Week Comments Yes 0 (1 standard drink = 0.6 oz pur e alcohol) rare Sex Assigned at Date Recorded Not on file Job Start Date Occupation Industry Not on file Not on file Not on file COVID-19 Exposure Response Date Recorded In the last month, have you been in contact with someone who was confirmed or suspected to have Coronavirus / COVID-19? No / Unsure 01/14/2021 11:03 AM EDT documented as of this encounter Plan of Treatment Not on file documented as of this encounter Visit Diagnoses Not on filedocumented in this encounter Care Teams Assembler Rubber Footwear Relationship Specialty Start Date End Date Sam Tapia MD PCP - General Internal Medicine 11/26/20 Cathy Barros DO PCP - General Internal Medicine 04/25/21 10/22/23 Danielle Correa MD [address] [place] [address] PCP - General Internal Medicine 10/23/23 documented as of this encounter
--- OUTSIDE RECORDS SUMMARY | 2024-06-17 08:04 | XMS_ITS | Encounter Summary ---
Author Organization [facility] Address [address] [place] [address] Care Team Providers Care Supervisor Blast Furnace Name Role Phone Cathy Barros DO Primary Care Provider Unavaila ble Danielle Correa MD Primary Care Provider [phone] Encounter Details Date Type Department Care Team Description 04/30/2023 Refill Adult Medicine [address] [address] Cathy Barros DO Social History Tobacco Use Types Packs/Day Years [...] benign documented in this encounter Care Teams Supervisor Blast Furnace Relationship Specialty Start Date End Date Cathy Barros DO PCP - General Internal Medicine 04/25/21 10/22/23 Danielle Correa MD [address] [place] [address] PCP - General Internal Medicine 10/23/23 documented as of this encounter
--- OUTSIDE RECORDS SUMMARY | 2024-06-17 08:04 | XMS_ITS | Encounter Summary ---
Author Organization [facility] Address [address] [place] [address] Care Team Providers Care Aircraft Designer Name Role Phone Tierra Gonzales MD Primary Care Provider UnavailSam Magallanes MD Primary Care Provider Unavailable Cathy Barros DO Primary Care Provider Unavaila Danielle Riley MD Primary Care Provider [phone] Encounter Details Date Type Department Care Team Description 03/13/2009 [facility] Medical Records [address] [place] [address] Kristal Joel MD Social History Tobacco Use Types Packs/Day [...] on filedocumented in this encounter Care Teams Aircraft Designer Relationship Specialty Start Date End Date Tierra Gonzales MD PCP - General 04/10/06 11/25/20 Sam Tapia MD PCP - General Internal Medicine 11/26/20 Cathy Barros DO PCP - General Internal Medicine 04/25/21 10/22/23 Danielle Correa MD [address] [place] [address] PCP - General Internal Medicine 10/23/23 documented as of this encounter
--- OUTSIDE RECORDS SUMMARY | 2024-06-17 08:04 | XMS_ITS | Encounter Summary ---
Author Organization [facility] Address [address] [place] [address] Care Team Providers Care Spectroscopist Name Role Phone Danielle Correa MD Primary Care Provider [phone] Encounter Details Date Type Department Care Team (Late st Contact Info) Description 03/21/2024 Lab Requisition [facility] - Main Lab [address] [facility] [place] [address] Uri Amanda MD [address] [facility] [address] [place] [address] Benign essential microscopic hematuria; Hematuria, unspecified Social [...] Acute inflammation present. 03/30/2024 4:23 PM EST [facility] Gross Description A. Urine, Voided, : [id number] Recd 1 TP cyto 03/30/2024 4:23 PM EST [facility] Disclaimer Unless otherwise specified, all tissue is 10% NB formalin fixed and paraffin embedded. 03/30/2024 4:23 PM [facility] Tissue Urine specimen from urethra / Unknown 03/16/2024 03/21/2024 11:15 AM EST us Uri Amanda MD LAB PATHOLOGY ORDERABLES Fi nal Result [facility] [address] [place] [address], documented in this encounter Visit Diagnoses Diagnosis Benign essential microscopic hematuria Hematuria, unspecified documented in this encounter Care Teams Spectroscopist Relationship Specialty Start Date End Date Danielle Correa MD [address] [place] [address] PCP - General 10/23/23 documented as of this encounter
--- OUTSIDE RECORDS SUMMARY | 2024-06-17 08:04 | XMS_ITS | Encounter Summary ---
Author Organization [facility] Address [address] [place] [address] Care Team Providers Care Systems Engineering Manager Name Role Phone Danielle Correa MD Primary Care Provider [phone] Encounter Details Date Type Department Care Team (Late st Contact Info) Description 03/28/2024 Nurse Triage Adult Medicine [facility] [address] [place] [address] Danielle Correa MD [address] [place] [address] Social History Tobacco Use Types Packs/Day Years [...] for your loved ones. For example, child and adolescent therapist or elderly care for an older adult? [...] on filedocumented in this encounter Care Teams Systems Engineering Manager Relationship Specialty Start Date End Date Danielle Correa MD [address] [place] [address] PCP - General 10/23/23 documented as of this encounter
--- OUTSIDE RECORDS SUMMARY | 2024-06-17 08:04 | XMS_ITS | Encounter Summary ---
Author Organization [facility] Address [address] [place] [address] Care Team Providers Care Pretzel Packer Name Role Phone Tierra Gonzales MD Primary Care Provider UnavailSam Magallanes MD Primary Care Provider Unavailable Cathy Barros DO Primary Care Provider UnavailDanielle Pinto MD Primary Care Provider [phone] Reason for Visit * Reason Comments E-prescribe Rx Request Encounter Details Date Type Department Care Team Description 08/01/2020 Refill Adult Medicine - [address] [address] Tierra Gonzales MD E-prescribe Rx Request Social History Tobacco Use [...] encounter Miscellaneous Notes * Telephone Encounter - Pat Urias - 08/01/2020 1:05 PM EDT Patient would like script to be: E-PRESCRIBED/FAXED TO PHARMACY WHEN WAS THE PATIENT'S LAST APPOINTMENT IN ADULT MEDICINE? 05/08/2020 WHEN WAS THE LAST TIME THE PATIENT SAW THEIR PCP? Same as above Does patient have an upcoming appointment? No-unable to reach left voicemaill to call for appointment due to refill request. Appt due (THE MEDICATION REQUESTED IS ON THE MED LIST ABOVE) All of the medications requested were on the CURRENT MEDS list Did you check the Pharmacy information above?: YES Patient wants: 30 -day supply Is this a mail order prescription request ? NO If the refill is from a FAXED refill request what is the RX # listed on the fax? N/A Patients current insurance carrier is: Payor: PENDING SALE TO [facility] / Plan: PPO $[id number] ANDOVER [id number] / Product Type: PPO [id number] documented in this encounter Plan of Treatment Not on file documented as of this encounter Visit Diagnoses Not on filedocumented in this encounter Care Teams Pretzel Packer Relationship Specialty Start Date End Date Tierra Gonzales MD PCP - General 04/10/06 11/25/20 Sam Tapia MD PCP - General Internal Medicine 11/26/20 Cathy Barros DO PCP - General Internal Medicine 04/25/21 10/22/23 Danielle Correa MD [address] [place] [address] PCP - General Internal Medicine 10/23/23 documented as of this encounter
--- OUTSIDE RECORDS SUMMARY | 2024-06-17 08:04 | XMS_ITS | Encounter Summary ---
Author Organization [facility] Address [address] [place] [address] Care Team Providers Care Foiling Machine Adjuster Name Role Phone Tierra Gonzales MD Primary Care Provider UnavailSam Magallanes MD Primary Care Provider Unavailable Cathy Barros DO Primary Care Provider Unavaila Danielle Riley MD Primary Care Provider [phone] Reason for Visit * Reason Onset Date Comments Medication 06/21/2019 colonoscopy Encounter Details Date Type Department Care Team Description 06/21/2019 Refill Gastroenterology - [address] [place] [address] Jacqueline Cintron MD [address] [place] [address] Medication (colonoscopy) Social History Tobacco Use Types Packs/Day Years [...] on filedocumented in this encounter Care Teams Foiling Machine Adjuster Relationship Specialty Start Date End Date Tierra Gonzales MD PCP - General 04/10/06 11/25/20 Sam Tapia MD PCP - General Internal Medicine 11/26/20 Cathy Barros DO PCP - General Internal Medicine 04/25/21 10/22/23 Danielle Correa MD [address] [place] [address] PCP - General Internal Medicine 10/23/23 documented as of this encounter
--- OUTSIDE RECORDS SUMMARY | 2024-06-17 08:04 | XMS_ITS | Encounter Summary ---
Author Organization [facility] Address [address] [place] [address] Care Team Providers Care Radio Engineering Teacher Name Role Phone Tierra Gonzales MD Primary Care Provider UnavailSam Magallanes MD Primary Care Provider Unavailable Cathy Barros DO Primary Care Provider Unavaila Danielle Riley MD Primary Care Provider [phone] Reason for Visit * Reason Onset Date Comments radiology 11/21/2015 mri testing. Encounter Details Date Type Department Care Team Description 11/21/2015 Telephone Adult Medicine - [address] [address] Jonathan Will PA-C radiology (mri testing.) Social History Tobacco Use Types Packs/Day Years [...] encounter Miscellaneous Notes * Telephone Encounter - Adelso Tai - 11/21/2015 9:29 AM EDT Maninder Fernández cancelled the mri of the right calf you requested, he did not want to reschedule. Thanks. Adelso, Mri Department. documented in this encounter Plan of Treatment Not on file documented as of this encounter Visit Diagnoses Not on filedocumented in this encounter Care Teams Radio Engineering Teacher Relationship Specialty Start Date End Date Tierra Gonzales MD PCP - General 04/10/06 11/25/20 Sam Tapia MD PCP - General Internal Medicine 11/26/20 Cathy Barros DO PCP - General Internal Medicine 04/25/21 10/22/23 Danielle Correa MD [address] [place] [address] PCP - General Internal Medicine 10/23/23 documented as of this encounter
--- OUTSIDE RECORDS SUMMARY | 2024-06-17 08:04 | XMS_ITS | Encounter Summary ---
Author Organization [facility] Address [address] [place] [address] Care Team Providers Care Certified Master Locksmith Name Role Phone Cathy Barros DO Primary Care Provider Unavaila [facility] Danielle Correa MD Primary Care Provider [phone] Reason for Visit * Reason Comments E-prescribe Rx Request Encounter Details Date Type Department Care Team Description 06/01/2023 Refill Adult Medicine - [address] [address] Cathy Barros DO E-prescribe Rx Request Social [...] encounter Miscellaneous Notes * Telephone Encounter - Bianka Menjivar - 06/02/2023 2:12 PM EST Duplicate/too soon documented in this encounter Plan of Treatment Not on file documented as of this encounter Visit Diagnoses Diagnosis Essential hypertension, benign documented in this encounter Care Teams Certified Master Locksmith Relationship Specialty Start Date End Date Cathy Barros DO PCP - General Internal Medicine 04/25/21 10/22/23 Danielle Correa MD [address] [place] [address] PCP - General Internal Medicine 10/23/23 documented as of this encounter
--- OUTSIDE RECORDS SUMMARY | 2024-06-17 08:04 | XMS_ITS | Clinical Summary ---
Author Organization LL [address] [place] [address] [place] [phone] Phone Care Team Providers Care Light Rail Signal Technician Name Role Phone Danielle Correa MD [...] Team Description 03/28/2024 Nurse Triage Adult Medicine [address] [phone] Danielle Correa MD 03/28/2024 Telephone Adult Medicine [address] [phone] Danielle Correa MD 03/21/2024 Lab Requisition [facility] - Main Lab [address] [facility] [place] [address] Uri Amanda MD Benign essential [...] History Surgery Date Site/Laterality Comments APPENDECTOMY PROCEDURE: MT APPENDECTOMY FOOT SURGERY PROCEDURE: MT UNLISTED PROCEDURE FOOT/TOES; COMMENT: left COLONOSCOPY 03/13/2009 [...] your loved ones. For example, child care center assistant director or elderly care for an older adult? [...] Procedure Name Priority Date/Time Associated Diagnosis Comments DEPRESSION SCREENING Routine 10/23/2023 ANNUAL BMP BLOOD TEST Routine 07/29/2023 LIPID PANEL Routine 10/21/2022 COLONOSCOPY Routine 09/20/2020 HEPATITIS C SCREENING Routine 04/23/2012 from Last 3 Months or Most Recently Relevant to Health Maintenance Results * Depression Screening (10/23/2023) Depression Screening abstracted us Historical Provider MD HEALTH MAINTENANCE Final Result * Annual BMP Blood Test (07/29/2023) [facility] Annual BMP Blood Test abstracted [facility] Provider HEALTH MAINTENANCE Final Result * (ABNORMAL) Lipid panel (10/21/2022) [facility] LDL/HDL Ratio 4 0 - 4 Triglycerides 156(A) 0 - 150 mg/dL Cholesterol 180 0 - 200 mg/dL HDL 51 >=40 mg/dL LDL Cholesterol 98 0 - 100 mg/dL Blood Venous blood specimen / Unknown [facility] Provider LAB BLOOD ORDERABLES Beth l Result * Colonoscopy (09/20/2020) [facility] Colonoscopy no interpreta tion,abstr acted Anatomical Region Laterality Modality Other [facility] Provider HEALTH MAINTENANCE Final Result * Hepatitis C Screening (04/23/2012) [facility] Hepatitis C Screening abstracted [facility] Provider HEALTH MAINTENANCE Final Result from Last 3 Months or Most Recently Relevant to Health Maintenance Insurance [facility] [place] [id number] MEDICARE [employer] Care Teams Light Rail Signal Technician Relationship Specialty Start Date End Date Danielle Correa MD [address] [place] [address] PCP - General 10/23/23
--- OUTSIDE RECORDS SUMMARY | 2024-06-17 08:04 | XMS_ITS | Encounter Summary ---
Author Organization [facility] Address [address] [place] [address] Care Team Providers Care Auto Locator Name Role Phone Tierra Gonzales MD Primary Care Provider UnavailSam Magallanes MD Primary Care Provider Unavailable Cathy Barros DO Primary Care Provider Unavaila Danielle Riley MD Primary Care Provider [phone] Reason for Visit * Reason Onset Date Comments E-prescribe Rx Request 02/27/2011 Encounter Details Date Type Department Care Team Description 02/27/2011 Refill Adult Medicine - [address] [address] Tierra Gonzales MD E-prescribe Rx Request Social History Tobacco Use Types Packs/Day Years Used Date Smoking Tobacco: Every Day Cigarettes 1 10 Last attempted to quit: 05/04/1988 Cigars Comments:occasionally cigars Alcohol Use Standard Drinks/Week Comments Yes 0 (1 standard drink = 0.6 oz pur e alcohol) rare Sex Assigned at Date Recorded Not on file Job Start Date Occupation Industry Not on file Not on file Not on file documented as of this encounter Miscellaneous Notes * Telephone Encounter - Meaghan Howard L.P.N. - 02/27/2011 10:12 AM EDT Component Value Date NA 139 09/06/2010 K 4.6 09/06/2010 CO2 28.7 09/06/2010 CL 103 09/06/2010 BUN 15 09/06/2010 CREAT 0.9 09/06/2010 GLU 92 12/06/2010 CA 9.1 09/06/2010 GFR > 60 09/06/2010 * Telephone Encounter - Fernanda Valerio - 02/27/2011 9:52 AM EDT WHEN WAS THE PATIENT'S LAST APPOINTMENT IN ADULT MEDICINE? 12/06/10 WHEN WAS THE LAST TIME THE PATIENT SAW THEIR PCP? Same as above Does patient have an upcoming appointment? Yes 04/04/11 (THE MEDICATION REQUESTED IS ON THE MED LIST ABOVE) All of the medications requested were on the CURRENT MEDS list Did you check the Pharmacy information above?: YES Is this a mail order prescription request? NO Indicate how soon the patient needs the script: BY THE END OF THE DAY Patient would like script to be: FAXED TO PHARMACY Is the doctor here today?: YES Can the message wait until the doctor returns?: YES Patients current insurance carrier is: Payor: [facility]/HMO FFS Plan: [employer] [place] $10 Product Type:HMO [id number] documented in this encounter Plan of Treatment Not on file documented as of this encounter Visit Diagnoses Not on filedocumented in this encounter Care Teams Auto Locator Relationship Specialty Start Date End Date Tierra Gonzales MD PCP - General 04/10/06 11/25/20 Sam Tapia MD PCP - General Internal Medicine 11/26/20 Cathy Barros DO PCP - General Internal Medicine 04/25/21 10/22/23 Danielle Correa MD [address] [place] [address] PCP - General Internal Medicine 10/23/23 documented as of this encounter
--- OUTSIDE RECORDS SUMMARY | 2024-06-17 08:04 | XMS_ITS | Encounter Summary ---
Author Organization [facility] Address [address] [place] [address] Care Team Providers Care Interdisciplinary Professor Name Role Phone Danielle Correa MD Primary Care Provider [phone] Encounter Details Date Type Department Care Team Description 02/18/2024 Transfer Records Medical Records [address] [place] [address] Abstract, Provider Social History Tobacco Use Types Packs/Day Years [...] on filedocumented in this encounter Care Teams Interdisciplinary Professor Relationship Specialty Start Date End Date Danielle Correa MD [address] [place] [id number] PCP - General Internal Medicine 10/23/23 documented as of this encounter
[2024-06-17 09:18] LABS: Cortisol Random 2.3 ug/dL
[2024-07-02 16:24] LABS: Dexamethasone 202 ng/dL
== END 2024-06-17 07:59 | disposition home or self-care (01) ==
LOC: HO.LAB 07:58
PROVIDERS: PCP Internal Medicine; Visit Provider Internal Medicine Endocrinology, Diabetes & Metabolism
DX: E27.8 Other specified disorders of adrenal gland (principal)
CPT/HCPCS: 36415; 80299; 82533

== ENCOUNTER 2024-06-30 07:15 | Outpatient (RCR) | payer MEDICARE, OTHER, SELFPAY ==
[2024-06-30 07:17] VITALS: BP 134/81; PULSE 66; RESP 18; TEMP 37.1
[2024-06-30] MEDS: Cosyntropin 0.25 MG VIAL IVPUSH (07:44)
[2024-07-01 08:09] LABS: Cortisol 60 Minute 36.6 mcg/dL; Cortisol Baseline 9.2 mcg/dL
== END 2024-06-30 09:00 | disposition home or self-care (01) ==
LOC: HO.INF 07:15
PROVIDERS: PCP Internal Medicine; Visit Provider Internal Medicine Endocrinology, Diabetes & Metabolism
DX: E27.8 Other specified disorders of adrenal gland (principal)
CPT/HCPCS: 36415; 82533; 96374; J0834

== ENCOUNTER 2025-02-21 08:18 | Outpatient (AMB) | payer MEDICARE, OTHER, SELFPAY ==
--- NOTE | 2025-02-21 08:24 | MHC.PC.OV ---
Vital Signs 02/21/25 08:29 Height 5 ft 11 in Weight 193 lb 6 oz BMI 27.0 BP 122/76 Blood Pressure Location Rt brachial Position Sitting Respiration 14 Pulse 63 Pulse Source Pulse Oximeter Temp 97.9 F Temp Source Oral Pulse Oximetry (%) 97 Oxygen Delivery Method Room Air Intake Visit Reasons: CPE Intake Note: Physical Maintenance Job Titles Required: No Allergies meperidine (From Demerol) Allergy (Unknown, Verified 02/21/25 08:27) stomach issue Tobacco use date assessed: 02/21/25 Fall risk assessment: No Falls in past year Last assessed Fall Risk: 02/21/25 Dental Screening Dental Screen Date: 06/07/24 HPI HPI Comments History of Present Illness Details The patient is a 64 year old male with a past medical history of hypertension, hyperlipidemia, hyperglycemia, OA, colon polyps, elevated LFTs presenting for CPE CV: On irbesartan, amlodipine. Blood pressure is well controlled. Denies chest pain, exertional dyspnea, LE edema Endocrine: Hyperglycemia. History of adrenal hyperplasia on CT which was done for a mass/lump in the left abdomen that he has had for the past few months. Saw endocrinology Urologic: Follows with [facility] urology. History of kidney stones. History of hematuria. Appt next week. MSK: Spinal stenosis, DDD. Doing intense physical therapy. Saw [facility] neuromuscular, neurosurgeon. Seeing Dr Camargo. Allergies/asthma: On claritin, prn albuterol GI: Saw [facility] GI, has upcoming appt in Apr to schedule colonoscopy Colonoscopy 2020 Flu vaccine today ROS see HPI PHYSICAL EXAM: GENERAL: Alert and oriented x 3. NAD EYES: EOMI. Anicteric. HENT: Moist mucous membranes. No scleral icterus. No cervical lymphadenopathy. LUNGS: Clear to auscultation bilaterally. CARDIOVASCULAR: Regular rate and rhythm. No murmur. No JVD. ABDOMEN: Soft, non-tender. EXTREMITIES: No edema. Non-tender. SKIN: No rashes or lesions. Warm. NEUROLOGIC: No focal neurological deficits. CN II-XII grossly intact PSYCHIATRIC: Cooperative. Appropriate mood and affect [facility] Medical History (Updated 02/21/25 @ 08:40 by Harmony Paez MD) Appendicitis H/O nephrolithotomy with removal of calculi Surgical History Hx of foot surgery H/O oral surgery Family History Maternal Uncle Alcoholic Mother Substance abuse Social History (Updated 02/21/25 @ 08:33 by Crys Martino CMA) Housing: House Alcohol intake: current Comment: once a week on a Thursday night Patient Tobacco Use Status: Former Tobacco user Cigarette Packs Per Day: 1 Years Smoked: 10 e-Cigarette/Vaping Use: Never Used Second Hand Smoke Exposure: No service: No Current occupational status: retired Cognitive needs: No Hearing needs: Yes (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 ) Vision needs: Yes (glasses) Questionnaire Thrive Questionnaire Date Thrive assessed: 05/31/24 I am a: Patient What is your living situation today?: I have a steady place to live Within the past 12 months, did the food you bought not last and you didn't have the money to get more?: Never true Within the past 12 months, did you worry whether your food would run out before you got money to buy more?: Never true Do you have trouble paying for medicines?: No Do you have trouble getting transportation to medical appointments?: No Do you have trouble paying your heating and electricity bill?: No Do you have trouble taking care of your child, family member or friend?: No Do you have trouble with day-to-day activities such as bathing, preparing meals, shopping, managing finances, etc.?: No Are you currently unemployed and looking for a job?: No Are you interested in more education?: No Please select the resources that you would like help with: None Currently or been in a relationship where the following occur: No concerns reported THRIVE Score: 0 AUDIT C Alcohol Use Questionnaire (AUDIT-C) 1. How often do you have a drink containing alcohol?: 2-4 times a month 2. How many drinks containing alcohol do you have on a typical day when you are drinking?: 1 or 2 3. How often do you have six or more drinks on one occasion?: Never Total Score: 2 Physical exam (Primary Care) Vital Signs: Last Vital Signs Temp 97.9 F 02/21/25 08:29 Pulse 63 02/21/25 08:29 Resp 14 02/21/25 08:29 BP 122/76 02/21/25 08:29 Pulse Ox 97 02/21/25 08:29 Oxygen Delivery Method Room Air 02/21/25 08:29 BMI result Body Mass Index 27.0 Tobacco/Smoking Status: Tobacco use Status Tobacco use date assessed 02/21/25 02/21/25 08:31 Patient Tobacco Use Status Former Tobacco user 02/21/25 08:33 e-Cigarette/Vaping Use Never Used 02/21/25 08:33 Thrive Assessment: Date of Thrive Assessment Date Thrive assessed 05/31/24 02/21/25 08:26 Currently or been in a relationship where the following occur: No concerns reported Coding Level of Care Code Est Pt Prev Care >65y(61658) Diagnoses Physical exam Z00.00 Prediabetes R73.03 Hyperglycemia R73.9 Adrenal hyperplasia E27.8 Assessment & Plan Assessment & Plan (1) Physical exam: Code(s): Z00.00 - Encounter for general adult medical examination without abnormal findings (2) Prediabetes: Code(s): R73.03 - Prediabetes Category: Medical (3) Hyperglycemia: Code(s): R73.9 - Hyperglycemia, unspecified Category: Medical (4) Adrenal hyperplasia: Code(s): E27.8 - Other specified disorders of adrenal gland Category: Medical Plan CPE Interval history reviewed Continue [facility] follow up for DDD, SS spine HTN is well controlled Preventive measures are up to date Low oxalate diet Orders: Orders Complete Blood Count Auto Diff Today R73.03 - Prediabetes, Z13.0 - Encounter for screening for diseases of the blood and blood-forming organs and certain disorders involving the immune mechanism Vitamin B12 and Folate Today R20.0 - Anesthesia of skin Comprehensive Met. Panel Today R73.03 - Prediabetes, Z13.0 - Encounter for screening for diseases of the blood and blood-forming organs and certain disorders involving the immune mechanism Lipid Panel Today R73.03 - Prediabetes, Z13.0 - Encounter for screening for diseases of the blood and blood-forming organs and certain disorders involving the immune mechanism Hemoglobin A1c Today R73.03 - Prediabetes, Z13.0 - Encounter for screening for diseases of the blood and blood-forming organs and certain disorders involving the immune mechanism Lyme IgG/IgM w/reflex to WB Today R20.0 - Anesthesia of skin Medications: New epinephrine (EpiPen 2-Jaleel) do not exceed 3 doses per episode 0.3 mg (0.3 mL) IM Q10M PRN 2 ea 0RF anaphylaxis
--- OUTSIDE RECORDS SUMMARY | 2025-02-21 08:24 | XMS_ITS | Encounter Summary ---
Author Organization [facility] Address [address] [place] [address] Phone Care Team Providers Care Sales Engagement Executive Name Role Phone Harmony Rodriguez MD Primary Care Provider [phone] Harmony Rodriguez MD Primary Care Provider + [phone] Encounter Details Date Type Department Care Team (Late st Contact Info) Description 09/08/2024 Procedure Pass [facility] [address] [place] [address] Social History Tobacco Use Types Packs/Day Years Used Date Smoking Tobacco: Former Cigarettes 1 10 1 06/25/1973 - 02/02/1984 Smokeless Tobacco: Never Comments:Haven t smoked in years Alcohol Use Standard Drinks/Week Comments Not Currently 0 (1 standard drink = 0.6 oz pur e alcohol) Education Answer Date Recorded Are you interested in more education? Not on sayra e 06/17/2024 Are you concerned about learning? Not on file 06/17/2024 No 06/17/2024 No 06/17/2024 Digital Access Answer Date Recorded No 06/17/2024 No 06/17/2024 Reliable internet access at home? Not on file 06/17/2024 Device with a working camera? Not on file Intimate Partner Violence Answer Date R ecorded Are you denied basic needs s uch as food, clothing, or medical care? Deferred 07/19/2024 In the past 12 months have y ou been in a relationship with a person who hurts, threatens, or tries to control you? Deferred 07/19/2024 Are you denied basic needs s uch as food, clothing, or medical care? Deferred 07/19/2024 In the past 12 months have y ou been in a relationship with a person who hurts, threatens, or tries to control you? Deferred 07/19/2024 Sex and Gender Information Value Date Recorded Sex Assigned at Male 06/14/2024 1:57 PM EST Legal Sex Male 1:48 PM EST Gender Identity Male 06/14/2024 1:57 PM EST Sexual Orientation Straight 06/14/2024 1: 57 PM EST documented as of this encounter Plan of Treatment Upcoming Encounters Date Type Department Care Team (Late st Contact Info) Description 03/09/2025 9:30 AM EST Telemedicine [facility] Neurosurgery [address] [facility], 7th Floor, [address] [place] [address] Edilberto Camargo MD, PhD [address] [place] [id number] [email or web address] 02/13/2026 8:00 AM EDT Office Visit [facility] Sleep Disorders Unit [address] [place] [address], 8th Floor, [address] [place] [address] Colton Joya MD, PhD [address] [place] [phone] [email or web address] documented as of this encounter Visit Diagnoses Not on filedocumented in this encounter Care Teams Sales Engagement Executive Relationship Specialty Start Date End Date Harmony Rodriguez MD PCP - General Internal Medicine 06/14/24 11/15/24 Harmony Rodriguez MD PCP - General Internal Medicine 11/16/24 documented as of this encounter Additional Source Comments The information contained in this document represents components of the legal health record. It is not the complete legal health record.[facility]
--- OUTSIDE RECORDS SUMMARY | 2025-02-21 08:24 | XMS_ITS | Encounter Summary ---
Author Organization [facility] Address [address] [place] [address] [place] [phone] Phone Care Team Providers Care Pbx Mechanic Name Role Phone Harmony Rodriguez MD Primary Care Provider [phone] Harmony Rodriguez MD Primary Care Provider [phone] Encounter Details Date Type Department Care Team (Late st Contact Info) Description 06/17/2024 Procedure Pass [facility] [address] [facility], [address]th [place] [address] Social History Tobacco Use Types Packs/Day Years Used Date Smoking Tobacco: Never Assessed Education Answer Date Recorded Are you interested in more education? Not on sayra e 06/17/2024 Are you concerned about learning? Not on file 06/17/2024 No 06/17/2024 No 06/17/2024 Digital Access Answer Date Recorded No 06/17/2024 No 06/17/2024 Reliable internet access at home? Not on file 06/17/2024 Device with a working camera? Not on file Sex and Gender Information Value Date Recorded Sex Assigned at Male 06/14/2024 1:57 PM EST Legal Sex Male 1:48 PM EST Gender Identity Male 06/14/2024 1:57 PM EST Sexual Orientation Straight 06/14/2024 1: 57 PM EST documented as of this encounter Plan of Treatment Upcoming Encounters Date Type Department Care Team (Late st Contact Info) Description 03/09/2025 9:30 AM EST Telemedicine [facility] Neurosurgery [address] [facility], 7th Floor, [address] [place] [address] Edilberto Camargo MD, PhD [address] [facility] [address] [place] [address] [email or web address] 02/13/2026 8:00 AM EDT Office Visit [facility] Sleep Disorders Unit [address] [facility], 8th Floor, [address] [place] [address] Colton Joya MD, PhD [address] [facility] [place] [address] [email or web address] documented as of this encounter Visit Diagnoses Not on filedocumented in this encounter Care Teams Pbx Mechanic Relationship Specialty Start Date End Date Harmony Rodriguez MD PCP - General Internal Medicine 06/14/24 11/15/24 Harmony Rodriguez MD PCP - General Internal Medicine 11/16/24 documented as of this encounter Additional Source Comments The information contained in this document represents components of the legal health record. It is not the complete legal health record.[facility]
--- OUTSIDE RECORDS SUMMARY | 2025-02-21 08:24 | XMS_ITS | Encounter Summary ---
Author Organization [facility] Address [address] [place] [address] Phone Care Team Providers Care House Painter Helper Name Role Phone Harmony Rodriguez MD Primary Care Provider + [phone] Harmony Rodriguez MD Primary Care Provider + [phone] Encounter Details Date Type Department Care Team (Late st Contact Info) Description 07/19/2024 Procedure Pass [facility] PERIOPERATIVE DEPT [address] [place] [phone] Social History Tobacco Use Types Packs/Day Years [...] Info) Description 03/09/2025 9:30 AM EST Telemedicine [facility] Neurosurgery [address] [facility], 7th Floor, [address] [place] [address] Edilberto Camargo MD, PhD [address] [place] [phone] [email or web address] 02/13/2026 8:00 AM EDT Office Visit [facility] Sleep Disorders Unit [address] [facility], 8th Floor, [address] [place] [address] Colton Joya MD, PhD [address] [place] [phone] [email or web address] documented as of this encounter Visit Diagnoses Not on filedocumented in this encounter Care Teams House Painter Helper Relationship Specialty Start Date End Date Harmony Rodriguez MD PCP - General Internal Medicine 06/14/24 11/15/24 Harmony Rodriguez MD PCP - General Internal Medicine 11/16/24 documented as of this encounter Additional Source Comments The information contained in this document represents components of the legal health record. It is not the complete legal health record.[facility]
--- OUTSIDE RECORDS SUMMARY | 2025-02-21 08:24 | XMS_ITS ---
Author Name [facility] Organization Unknown Care Team Organization Name Specialty Phone Email Start Date End Da [facility] 12/21/2024
--- OUTSIDE RECORDS SUMMARY | 2025-02-21 08:24 | XMS_ITS | Clinical Summary ---
Author Organization [facility] Address [address] [facility] [address] [place] [address] Phone Care Team Providers Care Online Tutor Name Role Phone Harmony Rodriguez MD Primary Care Provider Allergies Active Allergy Reactions Criticality Noted Date Comments Meperidine Nausea and/or Vomiting 06/28/2024 Medications amLODIPine (NORVASC) 10 MG tablet Take 1 tablet by mouth daily. 4 Active irbesartan (AVAPRO) 150 MG tablet Take 1 tablet by mouth daily. 4 Active ascorbic acid, vitamin C, (VITAMIN C) 1000 MG tablet Take 1,000 mg by mouth daily. Active fluticasone propionate (FLONASE) 50 mcg/actuation nasal spray 2 sprays by Nasal route daily. 4 Active betamethasone dipropionate 0.05 % cream Apply topically as needed. 4 Active tamsulosin (FLOMAX) 0.4 mg Cap Take 0.4 mg by mouth daily. 4 Active oxyCODONE 5 MG immediate release tablet Take 1 tablet (5 mg total) by mouth every 4 (four) hours as needed for pain (specific location in comments). Partial fill ok 6 tablet 5 Active Encounters Date Type Department Care Team Description 02/06/2025 4:00 PM EDT Office Visit [facility] Neuromuscular [place] [address] [facility], [address] [place] [address] Colton Joya MD, PhD 02/02/2025 Orders Only [facility] Administrative [address] [place] [address] Isael Zepeda MD, PhD 01/04/2025 7:50 AM EDT - 01/04/2025 11:59 PM EDT Hospital Encounter [facility] [address] [facility], [address] [place] [address] Clarita Gill MD, PhD Discharge Disposition: Home or Self Care 12/29/2024 Telephone [facility] Neuro[facility] [address] [facility], 7th Floor, [address] [place] [address] Edilberto Camargo MD, PhD 12/09/2024 9:30 AM EDT Office Visit [facility] [address] [facility], 7th Floor, [address] [place] [address] Edilberto Camargo MD, PhD Spinal stenosis, lumbar region, without neurogenic claudication (Primary Dx) from Last 3 Months Social History Tobacco Use Types Packs/Day Years Used Date Smoking Tobacco: Former Cigarettes 1 10 1 06/25/1973 - 02/02/1984 Smokeless Tobacco: Never Tobacco Cessation:Counseling Given: Not Answered Comments:Haven t smoked in years Alcohol Use Standard Drinks/Week Comments Not Currently 0 (1 standard drink = 0.6 oz pur e alcohol) Child or Family Care Answer Date Record ed Do you have problems with on e of the following making it difficult for you to work, study, or receive health care? No 12/02/2024 Education Answer Date Recorded Are you interested in more education? Not on sayra e 06/17/2024 Are you concerned about learning? Not on file 06/17/2024 No 06/17/2024 No 06/17/2024 Food Answer Date Recorded Within the past 6 months we worried whether our food would run out before we got money to buy more. Never True 12/02/2024 Within the past 6 months the food we bought just didn't last and we didn't have enough money to get more. Never True Residential Stability Answer Date Recor ded What is your housing situation today? I have ortega sing 12/02/2024 How many times have you move d in the past 12 months? Zero (I did not move) 12/02/2024 Paying for Meds Answer Date Recorded Do you have trouble paying for medicines? No 12/02/2024 Transportation Answer Date Recorded Has the lack of transportati on kept you from medical appointments or from getting medications? No 12/02/2024 Digital Access Answer Date Recorded No 12/02/2024 Yes 12/02/2024 Do you have reliable internet access at home? Ye s 12/02/2024 Do you have a device (e.g., phone, tablet, computer) with a working camera? Yes 12/02/2024 Intimate Partner Violence Answer Date R ecorded [...] Orientation Straight 06/14/2024 1: 57 PM EST Last Filed Vital Signs Vital Sign Reading Time Taken Comments Blood Pressure 133/79 09/08/2024 3:52 PM EDT Pulse 69 09/08/2024 3:52 PM EDT Temperature 36.3 C (97.4 F) 09/08/2024 3:52 PM EDT Respiratory Rate 18 08/12/2024 12:16 PM EDT Oxygen Saturation 96% 09/08/2024 3:52 PM EDT Inhaled Oxygen Concentration - - Weight 86.2 kg (190 lb) 09/24/2024 10:42 AM EDT Height 180.3 cm (5' 11 ) 09/24/2024 10:42 AM EDT Body Mass Index 26.5 09/24/2024 10:42 AM EDT Plan of Treatment Upcoming Encounters Date Type Department Care Team (Late st Contact Info) Description 03/09/2025 9:30 AM EST Telemedicine [facility] [address] [facility], 7th Floor, [address] [place] [address] Edilberto Camargo MD, PhD [address] [facility] [address] [place] [address] [email or web address] 02/13/2026 8:00 AM EDT Office Visit [facility] Sleep Disorders Unit [address] [facility], 8th Floor, [address] [place] [address] Colton Joya MD, PhD [address] [facility] [place] [address] [email or web address] Health Maintenance Due Date Last Done Comments CREATININE LEVEL 1958 POTASSIUM LEVEL 1958 DEPRESSION SCREENING 1970 HEPATITIS C SCREENING 1976 COLOGUARD 2003 COLONOSCOPY 2003 COLORECTAL CANCER SCREENING 2003 FIT TEST 2003 FOBT 2003 SIGMOIDOSCOPY 2003 VIRTUAL COLONOSCOPY 2003 INFLUENZA VACCINE (#1) 2024 , 02/02/2023, 01/24/2022, Additional history exists COVID-19 VACCINE ( season) 2025 01/27/2024, 01/25/2024, 02/02/2023, Additional history exists SCREENING FOR DIABETES 10/02/2027 10/01/2024 LIPID PANEL 10/22/2027 10/21/2022 Adult Td,Tdap Booster 12/22/2028 12/22/2018 , 03/23/2009, 05/04/1998 ZOSTER VACCINES Completed 05/10/2019, 02/02/2019 RSV VACCINE Completed 12/30/2022 PNEUMOCOCCAL VACCINES (50+ years) Completed 07/28/2023 ABDOMINAL AORTIC ANEURYSM (AAA) SCREENING Completed 06/28/2024 SMOKING STATUS SCREENING (Once After 26 Yrs) Completed 09/08/2024 HEPATITIS A VACCINES Aged Out No long er eligible based on patient's age to complete this topic HIB VACCINES Aged Out No longer eligi ble based on patient's age to complete this topic MENINGOCOCCAL VACCINES (ACWY) Aged Out No longer eligible based on patient's age to complete this topic MENINGOCOCCAL VACCINES (B) Aged Out N o longer eligible based on patient's age to complete this topic Medical Devices Implanted Type Area Porter Head Device Identifier Shelf Expiration Date Model / Serial / Lot Mesh Hernia 1.7x12cm Thick Round Ventral Optimized Composite W/Out Fixation Suture Parietex - [id number] Implanted:Qty: 1 on 07/19/2024 by Stef Yarbrough MD, PhD at [employer] STANDARD Left: Abdomen [employer] 11/01/2027 [id number] / [id number] / [id number] Procedures Procedure Name Priority Date/Time Associated Diagnosis Comments CT ABDOMEN/PELVIS (RENAL MASS) WITH AND WITHOUT CONTRAST Routine 06/28/2024 2:34 PM EST Spigelian hernia from Last 3 Months or Most Recently Relevant to Health Maintenance Results * CT ABDOMEN/PELVIS (RENAL MASS) WITH AND WITHOUT CONTRAST (06/28/2024 2:34 PM EST) Anatomical Region Laterality Modality Abdomen, Pelvis Computed Tomogra phy 06/30/2024 1:57 PM EST Impressions 06/30/2024 2:26 PM EST 1. Small fat-containing umbilical hernia protruding through an 8 mm fascial defect. No other abdominal wall hernias. 2. Moderate sized left hydrocele. 3. Nonobstructing bilateral nephrolithiasis. Narrative 06/30/2024 2:[address] ABDOMEN/PELVIS (RENAL MASS) WITH AND WITHOUT CONTRAST Referring clinician's provided indication for this examination in Epic: * Abdominal pain, hernia suspected TECHNIQUE: Multidetector-row CT of the abdomen and pelvis was performed before and after administration of intravenous contrast using tailored dose modulation techniques. Images were reconstructed in the axial, coronal, and sagittal planes. COMPARISON: None. FINDINGS: Lower Chest: The lung bases are clear. The heart size is normal. There is no pericardial or pleural effusion. Liver: The liver contour is smooth. The hepatic parenchyma demonstrates normal density. No concerning hepatic lesion is detected. Multiple hypodensities are likely cysts (3:13, 16, 30). Biliary: There is no intra or extrahepatic bile duct dilation. The gallbladder is normal. Spleen: The spleen size is normal. Pancreas: The pancreas is atrophic, without duct dilation. Adrenal Glands: The adrenal glands are normal in size and shape. Kidneys/Ureters: The kidneys are normal in size and enhance symmetrically, without hydronephrosis. Bilateral renal stones are present, measuring up to 4 mm on the left (302:287: An 2 mm on the right (302:261, 291). Bowel: The stomach and intra-abdominal and intrapelvic loops of small and large bowel are normal in caliber. Peritoneum/Retroperitoneum: There is no ascites or free air. Lymph Nodes: There is no mesenteric or retroperitoneal lymphadenopathy. Pelvic Organs/Bladder: The bladder is decompressed, and appears normal. The prostate is normal in size. A moderate-sized left hydrocele is partially visualized (3:86). Vessels: The abdominal aorta and iliac branches are patent and normal in caliber. Bones/Soft Tissues: There are no osseous lesions concerning for malignancy or infection. There are moderate degenerative changes throughout the thoracolumbar spine. There is a tiny fat-containing umbilical hernia protruding through an 8 mm fascial defect (300:341). Procedure Note Gadiel Zamarripa MD, PhD - 06/30/2024 CT ABDOMEN/PELVIS (RENAL MASS) WITH AND WITHOUT CONTRAST Referring clinician's provided indication for this examination in Epic: *Abdominal pain, hernia suspected TECHNIQUE: Multidetector-row CT of the abdomen and pelvis was performedbefore and after administration of intravenous contrast using tailoreddose modulation techniques. Images were reconstructed in the axial,coronal, and sagittal planes. COMPARISON: None. FINDINGS: Lower Chest: The lung bases are clear. The heart size is normal. There isno pericardial or pleural effusion. Liver: The liver contour is smooth. The hepatic parenchyma demonstratesnormal density. No concerning hepatic lesion is detected. Multiplehypodensities are likely cysts (3:13, 16, 30). Biliary: There is no intra or extrahepatic bile duct dilation. Thegallbladder is normal. Spleen: The spleen size is normal. Pancreas: The pancreas is atrophic, without duct dilation. Adrenal Glands: The adrenal glands are normal in size and shape. Kidneys/Ureters: The kidneys are normal in size and enhance symmetrically,without hydronephrosis. Bilateral renal stones are present, measuring upto 4 mm on the left (302:287: An 2 mm on the right (302:261, 291). Bowel: The stomach and intra-abdominal and intrapelvic loops of small andlarge bowel are normal in caliber. Peritoneum/Retroperitoneum: There is no ascites or free air. Lymph Nodes: There is no mesenteric or retroperitoneal lymphadenopathy. Pelvic Organs/Bladder: The bladder is decompressed, and appears normal.The prostate is normal in size. A moderate-sized left hydrocele ispartially visualized (3:86). Vessels: The abdominal aorta and iliac branches are patent and normal incaliber. Bones/Soft Tissues: There are no osseous lesions concerning for malignancyor infection. There are moderate degenerative changes throughout thethoracolumbar spine. There is a tiny fat-containing umbilical herniaprotruding through an 8 mm fascial defect (300:341). IMPRESSION: 1. Small fat-containing umbilical hernia protruding through an 8 mmfascial defect. No other abdominal wall hernias. 2. Moderate sized left hydrocele. 3. Nonobstructing bilateral nephrolithiasis. Flor Dubois [facility] IMG CT ABD/PELVIS Final Re sult from Last 3 Months or Most Recently Relevant to Health Maintenance Insurance * Guarantor: Maninder Reyes Account Type Relation to Patient Date of Phone Billing Address Personal/Family Self [address] [place] [id number] MEDICARE PART A & B Member Subscriber Plan / Payer (Ef fective 2023-Present) Name:Maninder Reyes Member ID:[id number] Relation to Subscriber:Self Name:Maninder Reyes Subscriber ID:[id number] Payer ID:[id number] Group ID:Not on file Type:Medicare Address: [facility] [employer] [facility] [address] [facility] [place] [address] [employer]hnologii obratnyh zadach [facility] [address] EXTENSION MEDICARE SUPPLEMENT [facility] [place] [address] MEDICARE PART A & B [facility] [place] [address] MEDICARE PART A & B [facility] EXTENSION MEDICARE SUPPLEMENT * Guarantor: Maninder Reyes Account Type Relation to Patient Date of Phone Billing Address Personal/Family Self [address] [place] [id number] MEDICARE PART A & B Member Subscriber Plan / Payer ( fective 2023-) Name:Maninder Reyes Member ID:[id number] Relation to Subscriber:Self Name:Maninder Reyes Adelaida Subscriber ID:[id number] Payer ID:[id number] Group ID:Not on file Type:Medicare Address: [employer] [facility] [address] [place] [address] [facility] [address] EXTENSION MEDICARE SUPPLEMENT * Guarantor: Maninder Reyes Account Type Relation to Patient Date of Phone Billing Address Personal/Family Self [address] [place] [address] MEDICARE PART A & B [facility] EXTENSION MEDICARE SUPPLEMENT * Guarantor: Maninder Reyes Account Type Relation to Patient Date of Phone Billing Address Personal/Family Self [address] [place] [id number] MEDICARE PART A & B Member Subscriber Plan / Payer (Ef fective 2023-Present) Name:Maninder Reyes Member ID:[id number] Relation to Subscriber:Self Name:Maninder Reyes Subscriber ID:[id number] Payer ID:[id number] Group ID:Not on file Type:Medicare Address: [employer] [facility] [address] [facility] [place] [place] [address] [facility] EXTENSION MEDICARE SUPPLEMENT Care Teams Online Tutor Relationship Specialty Start Date End Date Harmony Rodriguez MD PCP - General Internal Medicine 11/16/24 Additional Source Comments The information contained in this document represents components of the legal health record. It is not the complete legal health record.[facility]
--- OUTSIDE RECORDS SUMMARY | 2025-02-21 08:24 | XMS_ITS | Encounter Summary ---
Author Organization [facility] Address [address] [place] [address] Phone Care Team Providers Care Demolitionist Name Role Phone Harmony Rodriguez MD Primary Care Provider + [phone] Harmony Rodriguez MD Primary Care Provider + [phone] Encounter Details Date Type Department Care Team (Late st Contact Info) Description 10/10/2024 Procedure Pass [facility] [address] [place] [address] Social History Tobacco Use Types Packs/Day Years [...] Info) Description 03/09/2025 9:30 AM EST Telemedicine [facility] Neurosurgery [address] [facility], 7th Floor, [address] [place] [address] Edilberto Camargo MD, PhD [address] [place] [id number] [email or web address] 02/13/2026 8:00 AM EDT Office Visit [facility] Sleep Disorders Unit [address] [place] [address], 8th Floor, [address] [place] [address] Colton Joya MD, PhD [address] [place] [phone] [email or web address] documented as of this encounter Visit Diagnoses Not on filedocumented in this encounter Care Teams Demolitionist Relationship Specialty Start Date End Date Harmony Rodriguez MD PCP - General Internal Medicine 06/14/24 11/15/24 Harmony Rodriguez MD PCP - General Internal Medicine 11/16/24 documented as of this encounter Additional Source Comments The information contained in this document represents components of the legal health record. It is not the complete legal health record.[facility]
[2025-02-21 08:29] VITALS: BP 122/76; PULSE 63; RESP 14; TEMP 36.6; O2SAT 97; BMI 27.0
== END 2025-02-21 09:15 | disposition home or self-care (01) ==
LOC: HO.HMCFM 08:18
PROVIDERS: PCP Internal Medicine; Visit Provider Internal Medicine
DX: Z00.00 Encounter for general adult medical examination without abnormal findings (principal); R73.03 Prediabetes; R73.9 Hyperglycemia, unspecified; E27.8 Other specified disorders of adrenal gland; Z23 Encounter for immunization

== ENCOUNTER → 2025-02-21 08:18 | Outpatient (BNVA) | payer MEDICARE, OTHER, SELFPAY | PROVIDERS: PCP Internal Medicine; Visit Provider Internal Medicine | DX: Z00.00 Encounter for general adult medical examination without abnormal findings (principal); Z23 Encounter for immunization; R73.03 Prediabetes; E27.8 Other specified disorders of adrenal gland; I10 Essential (primary) hypertension; Z79.899 Other long term (current) drug therapy | CPT/HCPCS: 90471; 90656; 99397 ==

== ENCOUNTER 2025-03-21 09:53 | Outpatient (REF) | payer MEDICARE, OTHER, SELFPAY ==
[2025-03-21 12:00] LABS: MANUAL DIFF FLAG NO
[2025-03-21 12:13] LABS: Hematocrit 38.5 % (42.0-52.0); Hemoglobin 13.2 g/dl (14.0-18.0); Imm Gran Abs Auto 0.01 X10*3/uL (0.00-0.03); Imm Gran Pct Auto 0.1 % (0.0-0.4); Lymphocytes Absolute Auto 2.0 X10*3/uL (1.2-4.9); Mean Corpuscular HGB Conc 34.3 g/dl (31.0-36.0); Mean Corpuscular Hemoglobin 31.1 pg (27.0-33.0); Mean Corpuscular Volume 90.8 fL (80.0-98.0); NRBC Abs Auto 0.000 X10*3/uL (0.0-0.012); NRBC Pct Auto 0.0 /100WBC (0.0-0.2); Platelet Count 324 X10*3/uL (160-400); Red Blood Count 4.24 X10*6/uL (4.60-5.80); White Blood Count 6.8 X10*3/uL (4.8-10.8)
[2025-03-21 12:42] LABS: Alanine Aminotransferase 18 U/L (0-40); Albumin Level 4.3 g/dL (3.5-5.0); Alkaline Phosphatase 89 U/L (39-117); Anion Gap 13 (12-20); Aspartate Amino Transferase 44 U/L (5-37); Blood Urea Nitrogen 13 mg/dL (9-16); Calcium 9.1 mg/dL (8.4-10.2); Carbon Dioxide 25 mmol/L (22-29); Chloride 106 mmol/L (96-108); Cholesterol 156 mg/dL (<200); Estimated Glomerular Filt Rate > 60; HDL Cholesterol 35 mg/dL (>40); Potassium 4.0 mmol/L (3.3-5.1); Sodium 140 mmol/L (135-145); Total Protein 7.1 g/dL (6.5-8.0); Triglycerides 178 mg/dL (<150)
[2025-03-21 12:57] LABS: Folate 9.7 ng/mL (> or = 4.0); Vitamin B12 302 pg/mL (200-900)
[2025-03-22 07:52] LABS: Lyme Abs Screen <0.90 index
== END 2025-03-21 09:54 | disposition home or self-care (01) ==
LOC: HO.WFDLDS 09:53
PROVIDERS: Visit Provider Internal Medicine
DX: Z01.84 Encounter for antibody response examination (principal); Z13.0 Encounter for screening for diseases of the blood and blood-forming organs and certain disorders involving the immune mechanism; Z13.6 Encounter for screening for cardiovascular disorders; R73.03 Prediabetes; R20.0 Anesthesia of skin
CPT/HCPCS: 36415; 80053; 80061; 82607; 82746; 83036; 85025; 86617; 86618